=== PATIENT | female | born 1960 | race Caucasian/White ===

== ENCOUNTER 2020-06-25 11:23 | Outpatient (REF) | payer OTHER, SELFPAY ==
--- NOTE | 2020-06-25 11:29 | XR_ITS ---
EXAMINATION: XR HAND, BILATERAL CLINICAL INFORMATION: Pain in both hands. COMPARISON: Left hand 10/19/2017. TECHNIQUE: 3 views each hand. FINDINGS: RIGHT HAND: There is minimal loss of PIP and DIP joint space but no bony erosive changes seen. Periarticular spurring DIP joint 2nd digit is noted. There is punctate ossification of bone fragment along the dorsal aspect metacarpal right hand. The soft tissues are normal. LEFT HAND: There is mild loss of PIP and DIP joint space. MCP joint space is maintained. There is soft tissue calcification along the margin of MCP joint 4th digit. There is no visible acute fracture, dislocation or subluxation seen. XR/XR hand LT min 3V IMPRESSION: Mild degenerative changes both PIP and DIP joints. There is soft tissue calcification along the MCP joint 4th digit left hand and dorsal aspect proximal metacarpal right hand on lateral view.
--- NOTE | 2020-06-25 11:29 | XR_ITS ---
EXAMINATION: XR HAND, BILATERAL CLINICAL INFORMATION: Pain in both hands. COMPARISON: Left hand 10/19/2017. TECHNIQUE: 3 views each hand. FINDINGS: RIGHT HAND: There is minimal loss of PIP and DIP joint space but no bony erosive changes seen. Periarticular spurring DIP joint 2nd digit is noted. There is punctate ossification of bone fragment along the dorsal aspect metacarpal right hand. The soft tissues are normal. LEFT HAND: There is mild loss of PIP and DIP joint space. MCP joint space is maintained. There is soft tissue calcification along the margin of MCP joint 4th digit. There is no visible acute fracture, dislocation or subluxation seen. XR/XR hand RT min 3V IMPRESSION: Mild degenerative changes both PIP and DIP joints. There is soft tissue calcification along the MCP joint 4th digit left hand and dorsal aspect proximal metacarpal right hand on lateral view.
[2020-06-25 14:34] LABS: Alanine Aminotransferase 15 U/L (0-31); Alkaline Phosphatase 53 U/L (39-117); Anion Gap 13 (12-20); Aspartate Amino Transferase 16 U/L (5-31); Bilirubin Total 0.5 mg/dL (0.0-1.0); Blood Urea Nitrogen 16 mg/dL (9-16); Calcium 8.7 mg/dL (8.4-10.2); Carbon Dioxide 25 mmol/L (22-29); Chloride 103 mmol/L (96-108); Cholesterol 213 mg/dL; Estimated Glomerular Filt Rate > 60; Glucose Fasting 104 mg/dL (60-99); HDL Cholesterol 79 mg/dL; LDL Cholesterol Calculated 114 mg/dl; Sodium 137 mmol/L (135-145); Triglycerides 103 mg/dL
[2020-06-25 14:42] LABS: TSH reflex Free T4 2.92 mIU/mL (0.32-4.0); Vitamin D 25-OH Total 36.9 ng/mL (>30)
== END 2020-06-25 11:24 | disposition home or self-care (01) ==
LOC: HO.HMGCX 11:23
PROVIDERS: PCP Nurse Practitioner Family; Visit Provider Nurse Practitioner Family
DX: M79.642 Pain in left hand (principal); M79.641 Pain in right hand
CPT/HCPCS: 73130; 80053; 80061; 82306; 84443

== ENCOUNTER 2020-07-07 13:38 | Outpatient (REF) | payer OTHER, SELFPAY | END 2020-07-07 13:39 | disposition home or self-care (01) | LOC: HO.LAB 13:38 | PROVIDERS: Visit Provider Internal Medicine | DX: Z20.828 Contact with and (suspected) exposure to other viral communicable diseases (principal) | CPT/HCPCS: C9803; U0003 ==

== ENCOUNTER 2021-01-04 09:24 | Outpatient (REF) | payer OTHER, SELFPAY ==
[2021-01-04 11:52] LABS: Estimated Average Glucose 108 mg/dL; Hemoglobin A1c % 5.4 %
[2021-01-04 12:14] LABS: Alanine Aminotransferase 15 U/L (0-31); Albumin Level 4.3 g/dL (3.5-5.0); Alkaline Phosphatase 54 U/L (39-117); Anion Gap 13 (12-20); Aspartate Amino Transferase 20 U/L (5-31); Bilirubin Total 0.4 mg/dL (0.0-1.0); Blood Urea Nitrogen 17 mg/dL (9-16); Calcium 8.9 mg/dL (8.4-10.2); Carbon Dioxide 23 mmol/L (22-29); Chloride 107 mmol/L (96-108); Cholesterol 211 mg/dL; Estimated Glomerular Filt Rate > 60; Glucose Fasting 96 mg/dL (60-99); HDL Cholesterol 78 mg/dL; LDL Cholesterol Calculated 114 mg/dl; Sodium 139 mmol/L (135-145); Total Protein 7.2 g/dL (6.5-8.0); Triglycerides 99 mg/dL
== END 2021-01-04 09:25 | disposition home or self-care (01) ==
LOC: HO.HMGCLDS 09:24
PROVIDERS: PCP Nurse Practitioner Family; Visit Provider Nurse Practitioner Family
DX: R73.01 Impaired fasting glucose (principal)
CPT/HCPCS: 36415; 80053; 80061; 83036

== ENCOUNTER → 2021-02-28 08:29 | Outpatient (REF) | payer OTHER, SELFPAY ==
--- NOTE | ~2021-02-28 | NM_ITS ---
EXERCISE MYOCARDIAL PERFUSION STUDY INDICATION: History of coronary disease, assess for ischemia TECHNIQUE: The patient was brought in for an exercise perfusion study on 02/28/2021. Patient performed exercise as per Ra protocol and was injected 25 mCi of sestamibi once target heart rate was achieved. Images were obtained using the SPECT gamma camera interlaced with the gating device. Images were obtained in supine position. Resting perfusion study was performed on 03/02/2021. Patient was administered 25 mCi of sestamibi intravenously at rest. Images were then obtained in supine position. Total DLP 97mGy-cm. Images were processed with the software and compared side to side in short axis, horizontal long axis and vertical long axis views. FINDINGS: Raw images were reviewed. The stress perfusion study showed no significant perfusion abnormality. Both uncorrected as well as CT attenuation corrected images were reviewed. The gated study shows normal LV systolic function with calculated LVEF of 68%. LV cavity is normal in size. The gated study shows normal wall thickening and contraction of segments. Resting study shows no significant perfusion abnormality. Gating at rest reveals normal wall motion with ejection fraction at 60%. The findings are consistent with no reversible or fixed perfusion abnormality. AK/AK cardiolite stress test IMPRESSION: 1. Myocardial perfusion imaging study shows normal myocardial perfusion. 2. Gated LVEF is 68% during stress and 60% during rest. 3. Transient ischemic dilatation not present. EKG component of the test reported separately.
--- NOTE | 2021-02-28 08:32 | CA_ITS ---
Transthoracic Echocardiogram Patient (Last, First, Middle): Catalina Boggs, Gender: Female Date of : 1960 Age: 60 Procedure Date: 02/28/2021 Procedure Type: Transthoracic Echocardiogram Location: OP Height: 165.1 cm Weight: 70.31 kg BSA: 1.78 m2 Heart Rate: bpm BP: 118 / 80 mmHg Data Conversion Operator: SADAF Swan MD: Rodrigo Mayer [facility] Symptoms: R01.1 - Cardiac murmur, unspecified Study Quality: Good ECG Rhythm: Sinus Conclusions: - The left ventricular systolic function is normal. The calculated ejection fraction is 64% by biplane method. - No obvious valvular pathology seen on this study. Findings Left Ventricle Normal left ventricular cavity size. There is normal left ventricular wall thickness. The left ventricular systolic function is normal. The calculated ejection fraction is 64% by biplane method. There is no evidence of regional wall motion abnormalities. Diastolic function is normal for age. Right Ventricle Normal right ventricular cavity size and systolic function. Atria Both atria are normal in size. Aortic Valve There is a normal trileaflet aortic valve. There is no aortic valve stenosis. There is trace (trivial) aortic valve regurgitation. Mitral Valve The mitral valve appears normal. There is trace mitral valve regurgitation. There is no mitral valve stenosis. Pulmonic Valve The pulmonic valve was not well visualized. Tricuspid Valve Normal tricuspid valve structure. There is no tricuspid valve regurgitation. The pulmonary artery systolic pressure is normal. Great Vessels The aortic annulus, sinuses of valsalva, asc aorta, and aortic arch are normal in size. Venous The inferior vena cava is normal in size and collapses greater than 50% with inspiration. Pericardium/Pleural There is no evidence of pericardial effusion. Prior Study Comparison No significant change compared to prior study dated: 03/15/2012. Recommendations, Care & Conclusions No obvious valvular pathology seen on this study. Measurements 2D Linear Measurements IVSd: 0.94 0.6-0.9/0.6-1.0 cm LVIDd: 4.39 3.9-5.3/4.2-5.9 cm LVIDd Index: 2.47 2.4-3.2/2.2-3.1 cm/m2 LVIDs: 2.66 2.0-3.6 cm LVPWd: 0.84 0.7-1.1 cm Ao Root: 2.60 2.1-3.5 cm LA Diam: 3.80 2.7-3.8/3.0-4.0 cm LAIDs Index: 2.13 1.5-2.3 cm/m2 LV Mass: 156.29 67-162/88-224 g LV Mass Index: 87.80 43-95/49-115 g/m2 LVOT Diam: 2.00 3.0+(-)1.3 cm 2D Systolic Function EF 4C: 60.90 >55% EF 2C: 64.70 >55% EF BiP: 64.30 >55% Mitral Valve MV Pk E: 0.82 MV PK A: 0.69 MV Decel Time: 257.00 E/A: 1.20 E'Lateral: 9.36 E'Medial: 6.85 E/E' Med: 12.00 E/E' Lat: 8.80 PHT: 75.00 MVA PHT: 2.93 Decel Gratiot: 3.19 Aortic Valve AoV Pk Ruddy: 1.42 AoV Mn Ruddy: 0.99 AoV VTI: 0.30 AoV Pk Grad: 8.00 Aov Mn Grad: 4.00 CECY Cont.VTI: 2.30 LVOT LVOT Pk Ruddy: 1.03 LVOT Mn Ruddy: 0.70 LVOT VTI: 0.22 LVOT Pk Grad: 4.00 LVOT Mn Grad: 2.00 LVOT Diam: 2.00 LVOT Area: 3.14 Diastolic Function MV Pk E: 0.82 MV Pk A: 0.69 E/A: 1.20 E'Medial: 6.85 E/E' Med: 12.00 E' Laterial: 9.36 E/E' Lat: 8.80 Right Ventricle TAPSE (mm): 2.24 Tricuspid Valve TR Pk Ruddy: 1.53 TR Pk Grad: 9.00 RA Press: 3.00 RVSP: 12.00 Great Vessels Aorta Ao Root-2D: 2.60 2.0-3.7 cm Ao Asc: 2.90 2.1-3.4 cm Ao Arch: 2.70 Updated in Other Vendor System with Status of Final Yfn Israel MD electronically signed on 02/28/2021 11:45:14 AM with status of Final
--- NOTE | 2021-02-28 09:30 | CA_ITS ---
Acquisition Time: 2021-02-28 09:13:52 Total Exercise Time: 00:05:51 Test Indications: CAD Medications: SEE CHART Protocol: RONALD Max HR: 142 BPM 88% of Pred: 161 BPM Max BP: 184/090 mmHG Max Work Load: 7.0 METS Exercise stress nuclear using Ronald protocol, total of 5 min. 51 sec. METS 7.00 and MAPHR up to 88 %. Pt tolerated well, Mild SOB and no CP. EKG with isolated PVCs. EKG showed Mild ST depression in leads V4-V6 that normalized in recovery. Nuclear images to follow. Hypertensive response to exercise. Test reviewed with Dr. Israel. Referred By: Rodrigo Mayer Overread By: Khadijah Rabago NP
== END ==
LOC: HO.CARD 08:29
PROVIDERS: Visit Provider Nurse Practitioner Family
DX: R01.1 Cardiac murmur, unspecified (principal); Z82.49 Family history of ischemic heart disease and other diseases of the circulatory system
CPT/HCPCS: 78452; 93017; 93306; A9500

== ENCOUNTER 2022-09-07 10:14 | Outpatient (REF) | payer OTHER, SELFPAY ==
--- NOTE | ~2022-09-07 | XR_ITS ---
EXAMINATION: XR CHEST CLINICAL INFORMATION: Shortness of breath COMPARISON: Right shoulder radiographs 08/26/2013 TECHNIQUE: 2 views of the chest were obtained. FINDINGS: On the lateral radiograph, behind the sternum, a soft tissue density is seen which may represent a summation of densities. No definite significant abnormality is noted involving the heart, lungs, mediastinum, bony thorax or soft tissues. A sclerotic density is seen overlying the right humeral neck unchanged from 2014. XR/XR chest 2V IMPRESSION: No acute intrathoracic disease. Question of soft tissue density behind the sternum on the lateral radiograph. As there are no prior radiographs, CT scan of the chest could be performed for further evaluation to exclude a mass which is felt to be unlikely.
[2022-09-07 11:14] LABS: MANUAL DIFF FLAG NO
[2022-09-07 11:28] LABS: Basophils Absolute Auto 0.1 X10*3/uL (0.0-0.2); Basophils Percent Auto 0.9 % (0-2); Eosinophils Absolute Auto 0.3 X10*3/uL (0.0-0.4); Eosinophils Percent Auto 4.9 % (0-4); Hematocrit 38.8 % (37.0-47.0); Hemoglobin 12.8 g/dl (12.0-16.0); Imm Gran Abs Auto 0.03 X10*3/uL (0.00-0.03); Imm Gran Pct Auto 0.5 % (0.0-0.4); Lymphocytes Absolute Auto 1.5 X10*3/uL (1.2-4.9); Lymphocytes Percent Auto 23.7 % (20-40); Mean Corpuscular Hemoglobin 29.6 pg (27.0-33.0); Mean Corpuscular Volume 89.8 fL (80.0-98.0); Mean Platelet Volume 10.8 fL (9.4-12.3); Monocytes Percent Auto 15.5 % (2-11); Neutrophils Absolute Auto 3.5 x10*3/uL (2.0-8.3); Neutrophils Percent Auto 54.5 % (45-73); Platelet Count 237 X10*3/uL (160-400); Red Blood Count 4.32 X10*6/uL (4.20-5.50); Red Cell Distribution Width 12.1 % (11.0-16.0); White Blood Count 6.3 X10*3/uL (4.8-10.8)
[2022-09-07 11:33] LABS: Appearance Urine Clear; Color Urine Yellow; Glucose Urine UA Negative (Negative); Leukocyte Esterase Urine Trace (Negative); Nitrite Urine Negative (Negative); PH 5.5 (5.0-9.0); Specific Gravity - Urine 1.025 (1.005-1.025); UMIC TRIGGER UACC YES; Urine Blood Negative (Negative); Urine Ketones Negative (Negative); Urine Protein Negative (Neg-Trace)
[2022-09-07 11:40] LABS: Bacteria Urine 1+ (None Seen); Hyaline Casts Urine 0-2 /LPF (0-2); WBC Urine 0-5 /HPF (0-5)
[2022-09-07 11:52] LABS: Alanine Aminotransferase 25 U/L (0-31); Albumin Level 3.8 g/dL (3.5-5.0); Alkaline Phosphatase 75 U/L (39-117); Anion Gap 13 (12-20); Aspartate Amino Transferase 22 U/L (5-31); Bilirubin Total 0.3 mg/dL (0.0-1.0); Blood Urea Nitrogen 15 mg/dL (9-16); Calcium 8.6 mg/dL (8.4-10.2); Carbon Dioxide 25 mmol/L (22-29); Chloride 105 mmol/L (96-108); Cholesterol 207 mg/dL; Estimated Glomerular Filt Rate > 60; Glucose Fasting 100 mg/dL (60-99); HDL Cholesterol 69 mg/dL; LDL Cholesterol Calculated 116 mg/dl; Sodium 139 mmol/L (135-145); Total Protein 6.6 g/dL (6.5-8.0); Triglycerides 114 mg/dL
[2022-09-07 12:13] LABS: TSH reflex Free T4 3.71 uIU/mL (0.32-4.0); Vitamin D 25-OH Total 35.3 ng/mL (>30)
== END 2022-09-07 10:15 | disposition home or self-care (01) ==
LOC: HO.HMGCLDS 10:14
PROVIDERS: PCP Nurse Practitioner Family; Visit Provider Nurse Practitioner Family
DX: Z00.00 Encounter for general adult medical examination without abnormal findings (principal); R06.02 Shortness of breath; Z78.0 Asymptomatic menopausal state
CPT/HCPCS: 36415; 71046; 80053; 80061; 81001; 82306; 84443; 85025

== ENCOUNTER 2022-10-09 15:07 | Outpatient (REF) | payer OTHER, SELFPAY ==
--- NOTE | ~2022-10-09 | CT_ITS ---
EXAMINATION: CT CHEST WITH CONTRAST CLINICAL INFORMATION: Soft tissue density behind the sternum on a chest x-ray 09/07/2022. COMPARISON: Chest 09/07/2022. TECHNIQUE: Multidetector volumetric CT imaging of the chest was obtained after the administration of 50 mL of Omnipaque 350 intravenous contrast without immediate adverse reactions. Axial MIP volume rendering provided. Sagittal and coronal reformatted images were obtained. This CT examination was performed using dose optimization techniques as appropriate, variously including the following: *Automated exposure control *Adjustment of mA and/or kV according to patient size (this includes techniques or standardized protocols for targeted exams where dose is matched to indication/reason for exam; i.e. 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 LUNGS: The lungs are well-expanded and clear of acute pneumonic process. There is no consolidation, mass, infiltrates or groundglass attenuation. No pulmonary nodules seen either. MEDIASTINUM: The thyroid lobes are symmetrical and normal. The central trachea and bronchi are widely patent. No abnormal size mediastinal or hilar lymph nodes seen. There is no pericardial effusion. Trace coronary artery calcifications are seen. PLEURA: There is no pleural effusion. No pleural mass or thickening. AXILLA: There are small shotty lymph nodes in the axilla. The largest measuring 1 cm in the right axilla. UPPER ABDOMEN: Visualized spleen, pancreas and bilateral adrenal glands are unremarkable. There is a 2 cm curvilinear hypodensity in the left hepatic lobe, likely cyst. OSSEOUS STRUCTURES: No aggressive lytic or sclerotic process seen. CT/CT chest w IV con IMPRESSION: Unremarkable CT chest exam. No retrosternal mass or consolidation seen. Abnormality seen on the previous chest x-ray is likely an artifact. Fleischner guidelines were followed.
[2022-10-09] MEDS: iohexoL 350 MG/ML 100 ML INFUS..BTL 65 ML IV (15:52)
[2022-10-10 10:11] LABS: Creatinine POC 0.6 mg/dL (0.5-1.4); GFR POC > 60
== END 2022-10-09 15:08 | disposition home or self-care (01) ==
LOC: HO.CT 15:07
PROVIDERS: Visit Provider Nurse Practitioner Family
DX: M89.8X8 Other specified disorders of bone, other site (principal)
CPT/HCPCS: 71260; 82565; Q9967

== ENCOUNTER 2022-10-12 10:07 | Outpatient (REF) | payer OTHER, SELFPAY ==
--- NOTE | ~2022-10-12 | XR_ITS ---
EXAMINATION: XR KNEE, RIGHT CLINICAL INFORMATION: Right knee pain. COMPARISON: None available. TECHNIQUE: Four views of the right knee. FINDINGS: Bones and soft tissues are normal. No fracture or joint effusion. Alignment is anatomic. Joint spaces are well maintained. No abnormal soft tissue calcification. XR/XR knee RT 4V IMPRESSION: Unremarkable right knee.
== END 2022-10-12 10:08 | disposition home or self-care (01) ==
LOC: HO.HMGCX 10:07
PROVIDERS: PCP Nurse Practitioner Family; Visit Provider Internal Medicine
DX: S89.91XA Unspecified injury of right lower leg, initial encounter (principal)
CPT/HCPCS: 73564

== ENCOUNTER 2022-12-15 19:30 | Outpatient (REF) | payer OTHER, SELFPAY ==
--- NOTE | ~2022-12-15 | MR_ITS ---
EXAMINATION: MR KNEE WITHOUT CONTRAST, RIGHT CLINICAL INFORMATION: Right knee pain following injury on 10/02/2022. Pain and swelling. COMPARISON: Most recent right knee radiographs dated 10/12/2022. TECHNIQUE: MRI of the knee without contrast was performed using routine sequences on a high-field scanner. FINDINGS: MENISCI: Medial Meniscus: Significant irregularity and attenuation of the anterior root, consistent with complex, near-complete tearing and measuring up to 1.4 cm in ML dimension. Adjacent soft tissue edema. No additional meniscal tear. Lateral Meniscus: Intact LIGAMENTS: Cruciate: Intact Collateral: Intact EXTENSOR MECHANISM: Intact quadriceps and patellar tendons. Small superior patellar enthesophytes. Normal patellofemoral alignment. ARTICULAR CARTILAGE/BONE: Patellofemoral Compartment: Mild trochlear articular cartilage signal heterogeneity. Tiny marginal osteophytes. Medial Compartment: Mild weight-bearing articular cartilage signal heterogeneity and surface irregularity with tiny marginal osteophytes. Lateral Compartment: Intact articular cartilage. JOINT FLUID AND BURSAE: Small joint effusion. MR/MR knee RT wo con IMPRESSION: 1. Complex, near-complete tearing of the medial meniscus anterior root measuring 1.4 cm in ML dimension. Adjacent soft tissue edema. 2. Mild patellofemoral and medial compartment osteoarthritis. Small joint effusion.
== END 2022-12-15 19:31 | disposition home or self-care (01) ==
LOC: HO.MRI 19:30
PROVIDERS: PCP Nurse Practitioner Family; Visit Provider Nurse Practitioner Family
DX: M25.561 Pain in right knee (principal); M25.461 Effusion, right knee
CPT/HCPCS: 73721

== ENCOUNTER 2023-01-18 15:00 | Outpatient (RCR) | payer OTHER, SELFPAY ==
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
--- NOTE | 2023-01-19 14:54 | MHC.PT.DC ---
[facility] [place] Office [place] Office [place] Office [address] Denice Pritchard [address] [phone] F: [phone] F: [phone] F: [phone] F: [phone] Physical Therapy Discharge Report Diagnosis: This is a 62 yo female presenting to skilled PT with a script for pain in R knee/effusion of R knee. Date of Surgery: Date of Evaluation: 11/20/22 Date of Discharge: 01/19/23 Treatments to Date: 16 Cancellations to Date: 0 No Shows to Date: 0 Discharge Status: Achieved Goals Improved Function Independent with HEP Recommend MD Follow-up Discharge Summary: Pt has progressed with pain management, ROM (WNL 0-133), strength and gait (no longer using cane and demos good pattern). She also reports improvements in sleeping and stairs. We discussed wrapping up and DCing to HEP as she can perform all at home and has met her PT goals for now; patient in agreement. Still noted quad atrophy so educated on continuing strengthening program. DC to HEP. Patient to follow up with orthopedic 01/24/23. Electronically signed by: Nurys Gallego, PT Please sign and return to therapist. Thank you for your referral.
== END 2023-01-19 14:54 | disposition home or self-care (01) ==
LOC: HO.PTCHIC 15:00
PROVIDERS: PCP Nurse Practitioner Family; Visit Provider Nurse Practitioner Family
DX: M25.561 Pain in right knee (principal); M25.461 Effusion, right knee
CPT/HCPCS: 97014; 97110; 97140; 97162; 97164

== ENCOUNTER 2023-06-05 09:38 | Outpatient (AMB) | payer OTHER, SELFPAY ==
--- NOTE | 2023-06-05 10:36 | AM.OFFWIN_ITS ---
Intake Vital Signs 06/05/23 10:40 Height 5 ft 5 in Weight 168 lb BMI 28.0 BP 130/76 Blood Pressure Location Lt brachial Position Sitting Pulse 76 Pulse Source Pulse Oximeter Temp 97.9 F Temp Source Oral Pulse Oximetry (%) 97 Oxygen Delivery Method Room Air Intake Visit Reasons: ESt/pinched nerve in lt side of neck/[id number] Intake Note: Pinched nerve in left side of neck for 2 weeks. Patient Tobacco Use Status: Never used Tobacco Allergies azithromycin Allergy (Unknown, Verified 06/05/23 11:15) Unknown Bees Allergy (Unknown, Uncoded 06/05/23 11:15) Feels faint/unstable Erythromycin Allergy (Unknown, Uncoded 06/05/23 11:15) Eye swelling Medication List - Last Reconciled 06/05/23 by Braydon Boucher MD albuterol sulfate 90 mcg/actuation 2 puffs inhalation Q6H PRN 30 days bupropion HCl 150 mg PO ONCE diclofenac sodium 1% (Arthritis Pain (diclofenac)) 4 grams topical QID 30 days estradiol 1 patch transdermal QWEEK fexofenadine-pseudoephedrine 180-240 mg ER (Prema-D 24 Hour) 1 tab PO QAM fluticasone propionate 50 mcg/actuation 2 sprays intranasal DAILY glucosamine HCl PO ibuprofen (Motrin IB) 400 mg PO Q8H Lactobacillus acidophilus (Probiotic Acidophilus) 100 mmu cells PO DAILY lovastatin 20 mg PO DAILY 90 days meclizine 12.5 mg PO TID PRN methylcellulose (laxative) (Citrucel) 500 mg PO BID progesterone micronized mg PO simethicone (Gas Relief (simethicone)) 250 mg (2 x 125 mg) PO BID PRN 30 days trazodone 150 mg (3 x 50 mg) PO BEDTIME 90 days HPI ESt/pinched nerve in lt side of neck/[id number] HPI Details 62-year-old female presents to the [facility] for a sick visit. Patient is reporting pain in the left hand side of the neck. The pain is pr esent for the past 2 weeks. Radiating into the left arm with tingling sensation. Occasionally she feels the left arm to be weak. Recovering from a right knee surgery that happened a few months ago. [facility] Medical History Anxiety Dyslipidemia Hand pain Headache syndrome Hip pain Surgical History History of removal of cyst Family History Father Arthritis Diabetes mellitus Cataract Mother HTN (hypertension) Glaucoma History of angina Maternal Grandfather Myocardial infarction Maternal Grandmother Stroke Paternal Grandmother No problems noted. Paternal Grandfather Myocardial infarction Brother No problems noted. Sister No problems noted. Son No problems noted. Daughter No problems noted. Housing: House Alcohol intake: current Alcohol intake frequency: a few times a month Patient Tobacco Use Status: Never used Tobacco e-Cigarette/Vaping Use: Never Used Second Hand Smoke Exposure: No service: No Current occupational status: employed Cognitive needs: No Hearing needs: No Vision needs: No Physical Exam Vital Signs: Last Vital Signs Temp 97.9 F 06/05/23 10:40 Pulse 76 06/05/23 10:40 BP 130/76 06/05/23 10:40 Pulse Ox 97 06/05/23 10:40 Oxygen Delivery Method Room Air 06/05/23 10:40 BMI result Body Mass Index 28.0 Const General: cooperative and healthy appearing Nutritional Appearance: well nourished Orientation/consciousness: patient oriented x3 Limitations: no limitations HEENT Head: Yes normal to inspection Eyes General: appearance normal, both eyes and all related structures Neck Other: Neck: Minimal trapezius muscle discomfort on the left side. Neck: Yes normal visual inspection and Yes full ROM Chest Chest palpation & inspection: normal palpation of entire chest wall Resp Effort & Inspection: normal respiratory effort Neuro General: patient oriented x3 Assessment & Plan Assessment & Plan (1) Acute neck sprain: Code(s): S13.9XXA - Sprain of joints and ligaments of unspecified parts of neck, initial encounter Plan: Most likely a muscular strain. Muscle relaxant and anti-inflammatory called in. If symptoms do not improve to follow-up here. Coding Level of Care Code Est Pt Level 3 (64658) Diagnoses Acute neck sprain S13.9XXA
[2023-06-05 10:40] VITALS: BP 130/76; PULSE 76; TEMP 36.6; O2SAT 97; BMI 28.0
== END 2023-06-05 11:26 | disposition home or self-care (01) ==
PROVIDERS: PCP Nurse Practitioner Family; Visit Provider Internal Medicine
DX: S13.9XXA Sprain of joints and ligaments of unspecified parts of neck, initial encounter (principal)
CPT/HCPCS: 99213

== ENCOUNTER 2023-08-15 13:48 | Outpatient (AMB) | payer OTHER, SELFPAY ==
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
[2023-08-15 13:58] VITALS: BP 142/74; PULSE 87; O2SAT 100; BMI 27.6
== END 2023-08-15 15:24 | disposition home or self-care (01) ==
PROVIDERS: PCP Nurse Practitioner Family; Visit Provider Physician Assistant
DX: M54.50 Low back pain, unspecified (principal); M25.561 Pain in right knee
CPT/HCPCS: 99213

== ENCOUNTER 2023-08-22 14:58 | Outpatient (AMB) | payer OTHER, SELFPAY ==
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
[2023-08-22 15:05] VITALS: BP 148/76; PULSE 86; O2SAT 97; BMI 27.9
== END 2023-08-22 16:15 | disposition home or self-care (01) ==
PROVIDERS: PCP Nurse Practitioner Family; Visit Provider Nurse Practitioner Family
DX: S89.90XA Unspecified injury of unspecified lower leg, initial encounter (principal); Y99.0 Civilian activity done for income or pay; M54.50 Low back pain, unspecified; M79.606 Pain in leg, unspecified
CPT/HCPCS: 99213

== ENCOUNTER 2023-09-06 14:53 | Outpatient (AMB) | payer OTHER, SELFPAY ==
--- NOTE | 2023-09-06 07:23 | MHC.PC.OV ---
Intake Visit Reasons: Follow up back pain Iphone Allergies azithromycin Allergy (Unknown, Verified 08/22/23 15:09) Unknown Bees Allergy (Unknown, Uncoded 08/22/23 15:09) Feels faint/unstable Erythromycin Allergy (Unknown, Uncoded 08/22/23 15:09) Eye swelling Tobacco use date assessed: 08/22/23 HPI Follow up back pain Iphone HPI Details Lower back pain: Pt is currently going to PT twice a week. She recently finished dexamethasone taper which helped. radicular symptms seem to have lessoned. Pt is following up with the spine center in the near future. Pt is going back to work on Sunday, and will keep me posted, via portal, with her tolerance. Denies any signs of cauda equina. Pt is going massage therapy as well. [facility] Medical History Dyslipidemia Headache syndrome Anxiety Hip pain Hand pain Surgical History History of removal of cyst Family History Father Arthritis Diabetes mellitus Cataract Mother HTN (hypertension) Glaucoma History of angina Maternal Grandfather Myocardial infarction Maternal Grandmother Stroke Paternal Grandmother No problems noted. Paternal Grandfather Myocardial infarction Brother No problems noted. Sister No problems noted. Son No problems noted. Daughter No problems noted. Social History Housing: House Alcohol intake: current Alcohol intake frequency: a few times a month Patient Tobacco Use Status: Never used Tobacco e-Cigarette/Vaping Use: Never Used Second Hand Smoke Exposure: No service: No Current occupational status: employed Cognitive needs: No Hearing needs: No Vision needs: No Questionnaire Thrive Questionnaire Date Thrive assessed: 08/22/23 ELOY-7 AMB Questionnaire ELOY-7 Date ELOY - 7 assessed: 08/22/23 Source: Developed by Drs. Karthik Gooden, Nikkie Lemus, Juan J Perdomo and colleagues, with an educational jackson from [employer]. Review of Systems Const Reports as per HPI Physical exam (Primary Care) Tobacco/Smoking Status: Tobacco use Status Tobacco use date assessed 08/22/23 09/06/23 07:24 Patient Tobacco Use Status Never used Tobacco 09/06/23 07:24 e-Cigarette/Vaping Use Never Used 09/06/23 07:24 Thrive Assessment: Date of Thrive Assessment Date Thrive assessed 08/22/23 09/06/23 07:24 Const General: cooperative Orientation/consciousness: patient oriented x3 Neuro General: patient oriented x3 Psych Appearance: grossly normal Mental Status: mental status grossly normal Speech and movement: Clear speech present Affect: normal affect Attitude: cooperative Thought process: Normal thought process present Thought content: Normal thought content present Insight: Good insight present (Psych) Judgement: Good judgement present (Psych) Telehealth Telehealth Location of provider rendering services: practice address Location of patient: address on file Patient Identification confirmed using: Name, : Yes Telehealth method: video Patient verbally consented to treatment: Yes Patient verbally consented to billing insurance company: Yes Patient informed of any privacy concerns related to visit: Yes Minutes spent on Phone/Video with Pt.: 10 Assessment and Plan Assessment & Plan (1) Low back pain radiating to lower extremity: Code(s): M54.50 - Low back pain, unspecified; M79.606 - Pain in leg, unspecified Plan The patient agreed to the use of a internist medical doctor md for this encounter. Scribed for SUSHMA Guillen by Mali Bellamy internist medical doctor md, on 09/06/2023 at 07:25 EST. Coding Level of Care Code Tele Est Pt Level 3 (64437) Diagnoses Low back pain radiating to lower extremity M54.50; M79.606
== END 2023-09-06 15:27 | disposition home or self-care (01) ==
LOC: HO.HMGC 14:54
PROVIDERS: PCP Nurse Practitioner Family; Visit Provider Nurse Practitioner Family
DX: M54.50 Low back pain, unspecified (principal); M79.606 Pain in leg, unspecified
CPT/HCPCS: 99213

== ENCOUNTER 2024-08-19 06:56 | Outpatient (AMB) | payer OTHER, SELFPAY ==
--- NOTE | 2024-08-19 07:48 | A.OFFVIS_ITS ---
Intake Visit Reasons: Discuss anxiety-[place] [phone] Allergies azithromycin Allergy (Unknown, Verified 08/22/23 15:09) Unknown Bees Allergy (Unknown, Uncoded 08/22/23 15:09) Feels faint/unstable Erythromycin Allergy (Unknown, Uncoded 08/22/23 15:09) Eye swelling HPI HPI Discuss anxiety-[place]ardohone [phone]: Details: History of Present Illness The patient is a 63-year-old female presenting with a follow-up for Major Depressive Disorder and Anxiety Disorder. She reports an increase in anxiety and some depression, which has been attributed to significant stressors in her life. Recently, the patient has moved out of her home due to a difficult relationship with her spouse and is now residing with her elderly mother, whom she assists with care. This change has coincided with employment in a new job that is stressful. left her previous position which contributed to symptoms of PTSD. The patient and her therapist mentioned a increase her Wellbutrin dosage from 150 mg to 300 mg XL daily to better manage her symptoms of anxiety and depression. The patient acknowledges improvement in her living situation and anticipates a positive trajectory in her mental health, though she continues to experience some stress related to her new job. Review of Systems - Psychiatric: Reports increased anxiety and depression. Plan - Increase the dose of Wellbutrin to 300 mg XL once daily to manage symptoms of anxiety and depression. - Follow up with the patient in approximately two months to evaluate the effectiveness of the increased Wellbutrin dose. - Schedule a physical examination for the same follow-up visit. Patient was informed and verbally consented to the use of an ambient scribe for clinic note documentation during this visit. Discussion Notes During our discussion, I supported the decision to increase the Wellbutrin dosage as recommended by the patient's therapist. This change aims to address the patient's exacerbated anxiety and depressive symptoms since relocation and taking on a new job. I find this plan appropriate given her current stressors and past experiences. A follow-up appointment is scheduled in two months, during which I will assess her progress with the medication adjustment and conduct a physical examination. The patient is currently not in acute distress, appears alert, and is oriented, indicating that she's adjusting well to the alterations in her treatment regimen. Patient Instructions - Begin taking 300 mg Wellbutrin XL once daily. - Monitor for any changes in mood, anxiety, or stress levels. - Maintain regular communication with your therapist. - Attend the follow-up appointment in two months for reassessment. - Notify medical personnel if new symptoms arise or if current symptoms worsen. - Continue assisting with caregiving responsibilities as tolerated, but seek help if feeling overwhelmed. [facility] Medical History (Updated 08/19/24 @ 07:49 by SUSHMA Chandra) Dyslipidemia Headache syndrome Anxiety Hip pain Hand pain Surgical History History of removal of cyst Family History Father Arthritis Diabetes mellitus Cataract Mother HTN (hypertension) Glaucoma History of angina Maternal Grandfather Myocardial infarction Maternal Grandmother Stroke Paternal Grandmother No problems noted. Paternal Grandfather Myocardial infarction Brother No problems noted. Sister No problems noted. Son No problems noted. Daughter No problems noted. Social History Housing: House Alcohol intake: current Alcohol intake frequency: a few times a month Patient Tobacco Use Status: Never used Tobacco e-Cigarette/Vaping Use: Never Used Second Hand Smoke Exposure: No service: No Current occupational status: employed Cognitive needs: No Hearing needs: No Vision needs: No Telehealth Telehealth Telehealth Platform: [facility] Location of provider rendering services: practice address Location of patient: address on file Patient Identification confirmed using: Name, : Yes Telehealth method: voice only Patient verbally consented to treatment: Yes Patient verbally consented to billing insurance company: Yes Patient informed of any privacy concerns related to visit: Yes Minutes spent on Phone/Video with Pt.: 15 Assessment & Plan Assessment & Plan (1) Anxiety: Code(s): F41.9 - Anxiety disorder, unspecified Category: Medical (2) Depression: Code(s): F32.A - Depression, unspecified Category: Medical Plan . Medications: Changed From bupropion HCl XL 150 mg PO ONCE 90 tabs 5RF To bupropion HCl XL 300 mg PO DAILY 90 tabs 2RF Coding Level of Care Code Tele Est Pt Level 3 (17127) Diagnoses Anxiety F41.9 Depression F32.A
== END 2024-08-19 09:38 | disposition home or self-care (01) ==
PROVIDERS: PCP Nurse Practitioner Family; Visit Provider Nurse Practitioner Family
DX: F41.9 Anxiety disorder, unspecified (principal); F32.A Depression, unspecified

== ENCOUNTER → 2024-08-19 06:56 | Outpatient (BNVA) | payer OTHER, SELFPAY | PROVIDERS: PCP Nurse Practitioner Family; Visit Provider Nurse Practitioner Family ==

== ENCOUNTER 2024-10-03 11:44 | Outpatient (AMB) | payer OTHER, SELFPAY ==
--- NOTE | 2024-10-03 11:46 | MHC.OFFWIV ---
Intake Vital Signs 10/03/24 11:48 Weight 165 lb BP 124/82 Blood Pressure Location Rt brachial Position Sitting Pulse 81 Pulse Source Pulse Oximeter Pulse Oximetry (%) 95 Oxygen Delivery Method Room Air Intake Visit Reasons: EP [place] eye (RT) Intake Note: Patient here for right eye irritation and discharge that has been present for about 3 days. Patient Tobacco Use Status: Never used Tobacco Allergies azithromycin Allergy (Unknown, Verified 10/03/24 11:49) Unknown Bees Allergy (Unknown, Uncoded 10/03/24 11:49) Feels faint/unstable Erythromycin Allergy (Unknown, Uncoded 10/03/24 11:49) Eye swelling Do you need a note to return to daycare/school/sports/work: No HPI HPI Comments History of Present Illness Details This is a 63-year-old female who presented to the walk-in clinic complaining of right eye irritation and discharge. She states she has been waking up with right eye redness/irritation, purulent discharge, and crusting for the past 3 days. She states she uses warm compresses and her symptoms seem to resolve as the day progresses; however, she then develops redness and purulent discharge again the following morning. She states the symptoms are now starting to develop in her left eye as well. She denies any eye pain or visual changes. 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 She does report a history of seasonal allergies; however, she states that she typically has a lot of eye watering with her allergies and she does not typically have thick discharge or crusting. [facility] Medical History (Updated 08/19/24 @ 07:49 by SUSHMA Chandra) Dyslipidemia Headache syndrome Anxiety Hip pain Hand pain Surgical History History of removal of cyst Family History Father Arthritis Diabetes mellitus Cataract Mother HTN (hypertension) Glaucoma History of angina Maternal Grandfather Myocardial infarction Maternal Grandmother Stroke Paternal Grandmother No problems noted. Paternal Grandfather Myocardial infarction Brother No problems noted. Sister No problems noted. Son No problems noted. Daughter No problems noted. Social History Housing: House Alcohol intake: current Alcohol intake frequency: a few times a month Patient Tobacco Use Status: Never used Tobacco e-Cigarette/Vaping Use: Never Used Second Hand Smoke Exposure: No service: No Current occupational status: employed Cognitive needs: No Hearing needs: No Vision needs: No Review of Systems Const All systems reviewed & are unremarkable except as noted in HPI and below Reports no additional complaints Eyes Reports no additional complaints ENT Reports no additional complaints Card Reports no additional complaints Resp Reports no additional complaints GI Reports no additional complaints Reports no additional complaints Musc Reports no additional complaints Skin/Breast Reports system reviewed and no additional complaints, except as documented Neuro Reports no additional complaints Psych Reports no additional complaints Endo Reports no additional complaints Jagdeep/Lymph Reports no additional complaints Aller/Immun Reports no additional complaints Physical Exam Vital Signs: Last Vital Signs Pulse 81 10/03/24 11:48 BP 124/82 10/03/24 11:48 Pulse Ox 95 10/03/24 11:48 Oxygen Delivery Method Room Air 10/03/24 11:48 Const Other: Vital signs reviewed. Constitutional: Non-toxic appearing. No acute distress. Well-developed and well-nourished. HEENT: Normocephalic and atraumatic. Tympanic membranes without erythema, edema, or bulging bilaterally. External auditory canals without erythema or edema bilaterally. Moist mucous membranes. No pharyngeal erythema or exudates. No significant conjunctival injection or purulent discharge/drainage at this time. Skin: Warm and dry. No rashes or lesions noted. Neck: Full and painless range of motion. Cardio: Regular rate. No lower extremity edema. Pulmonary: No respiratory distress. No accessory muscle usage. Musculoskeletal: Normal range of motion in joints throughout the body. No deformity or other signs of injury. Neuro: Alert and oriented x4. Cranial nerves 2-12 grossly intact. No focal deficits appreciated. Psych: Normal mood and affect. Assessment & Plan Assessment & Plan (1) Bacterial conjunctivitis: Code(s): H10.9 - Unspecified conjunctivitis Plan This is a 63-year-old female who presented to the walk-in clinic complaining of right eye irritation and discharge/crusting, which occurs in the morning and has now developed in her left eye. On physical examination, there is no significant conjunctival injection or discharge/drainage at this time but patient states it really only happens when she wakes up in the morning. History is most consistent with possible bacterial conjunctivitis. Patient unable to use erythromycin ointment due to allergy so she was given a prescription for ciprofloxacin eye drops as below. Patient should continue with warm/cool compresses and practice good hand hygiene. Patient advised to follow up here for persistent/worsening symptoms. Patient verbalized understanding and is agreeable with the plan. Medications: New ciprofloxacin HCl 0.3% put 1-2 drps in affected eye(s) every 2hr up to 8 times/day x2days; then 4 times/day x5days ophthalmic (eye) 10 mL 0RF Coding Level of Care Code Est Pt Level 3 (76780) Diagnoses Bacterial conjunctivitis H10.9
[2024-10-03 11:48] VITALS: BP 124/82; PULSE 81; O2SAT 95
== END 2024-10-03 12:53 | disposition home or self-care (01) ==
PROVIDERS: PCP Nurse Practitioner Family; Visit Provider Physician Assistant Medical
DX: H10.9 Unspecified conjunctivitis (principal)

== ENCOUNTER 2024-10-23 16:06 | Outpatient (AMB) | payer OTHER, SELFPAY ==
--- NOTE | 2024-10-23 16:13 | A.OFFPC_ITS ---
Vital Signs 10/23/24 16:14 Height 5 ft 5 in Weight 168 lb BMI 28.0 BP 120/80 Blood Pressure Location Lt brachial Position Sitting Pulse 81 Pulse Source Pulse Oximeter Pulse Oximetry (%) 93 Oxygen Delivery Method Room Air Intake Visit Reasons: ANNUAL PE [employer] Agent Required: No Accompanied by: Self / Same As Patient Allergies azithromycin Allergy (Unknown, Verified 10/23/24 16:44) Unknown Bees Allergy (Unknown, Uncoded 10/23/24 16:44) Feels faint/unstable Erythromycin Allergy (Unknown, Uncoded 10/23/24 16:44) Eye swelling Medication List - Last Reconciled 10/23/24 by Rodrigo Mayer, [facility] albuterol sulfate 90 mcg/actuation 2 puffs inhalation Q6H PRN 30 days bupropion HCl XL 300 mg PO DAILY diclofenac sodium 1% (Arthritis Pain (diclofenac)) 4 grams topical QID 30 days estradiol 1 patch transdermal QWEEK fexofenadine-pseudoephedrine 180-240 mg ER (Prema-D 24 Hour) 1 tab PO QAM fluticasone propionate 50 mcg/actuation 2 sprays intranasal DAILY 90 days glucosamine HCl PO ibuprofen (Motrin IB) 400 mg PO Q8H Lactobacillus acidophilus (Probiotic Acidophilus) 100 mmu cells PO DAILY lovastatin 20 mg PO DAILY 90 days methylcellulose (laxative) (Citrucel) 500 mg PO BID progesterone micronized mg PO simethicone (Gas Relief (simethicone)) 250 mg (2 x 125 mg) PO BID PRN 30 days trazodone 150 mg (3 x 50 mg) PO BEDTIME 90 days Tobacco use date assessed: 10/23/24 Dental Screening Dental Screen Date: 10/23/24 Did you have a dental visit in the last 12 months?: Yes Did you have a dental problem in the last 6 months where you did not have access to dental care?: No Was dental information given to patient?: Patient has dentist HPI ANNUAL PE HPI Details History of Present Illness The patient is a 64-year-old female presenting with a request for an annual physical examination. She reports a history of asthma, with symptoms like wheezing manifesting intermittently during allergy seasons especially. The patient currently manages her condition without regular use of albuterol, which is , or other maintenance inhalers that she previously found ineffective. The patient has experienced COVID-19 infections four times, with the last infection in June. Since her last infection, she has a lingering chronic cough and episodes of shortness of breath that are self-limiting and brief. She denies any symptoms such as fevers, chills, chest pain. Health Maintenance - Cologuard screening up to date - Mammogram screening reported as up to date -has a urogynaecologist for paps Social History Review of Systems - Constitutional: Denies fevers or chill s - Respiratory: Reports history of asthma with intermittent wheezing; denies current shortness of breath requiring medication - Cardiovascular: Denies chest pain - Gastrointestinal: denies blood in stoo l, does have a Hx of IBS (sees GI) - Psychiatric: Denies suicidal or homici juanito ideation Physical Exam General: Cooperative, healthy appearing, comfortable, no acute distress and well developed Orientation: Patient oriented x3 Limitations: No limitations Head: Normal to inspection Ears: Hearing grossly normal bilaterally Nose: Normal external nose present Face and sinus: Normal facial exam Eyes: Appearance normal, both eyes and all related structures Neck: Normal visual inspection and Yes full ROM Respiratory: Lungs clear. Normal respiratory effort and able to speak in complete sentences. Clear to auscultation bilaterally Cardiovascular: Regular rate and rhythm. Very faint systolic murmur. Normal S1 and S2 GI: Normal to inspection. Soft to palpation and nontender Skin: No rashes or lesions noted Neuro: Patient oriented x3 Extremities: Normal to inspection Results Plan I will conduct a CT scan and pulmonary function tests to explore the patient's chronic respiratory symptoms and allergy profile blood tests. I will provide a new prescription for albuterol given her current inhaler's expiration. For allergy management, I recommend a trial of cetirizine in lieu of Prema D. I acknowledge the patient's history with previous inhalers and will not change her maintenance therapy at this time but remain open to reassessing if symptoms worsen. Her health screenings are maintained up to date. Discussion Notes I discussed with the patient the historical context of her asthma and the likelihood of seasonal allergies contributing to her respiratory symptoms. We reviewed the need for a new albuterol inhaler and discussed the shift from Prema D to cetirizine to address allergy symptoms. I explained the importance of the planned CT scan, pulmonary function tests, and allergy profile blood work in assessing her respiratory condition and potential allergies. We reviewed her up-to-date health screenings, and she was advised to maintain regular check-ups. Patient Instructions - Continue current asthma management wit h new albuterol inhaler as needed - Start cetirizine, 20 mg in the morning and 20 mg at night - Complete scheduled CT scan and pulmona ry function tests - Continue routine health screenings inc luding mammogram and Cologuard - Return for follow-up after diagnostic test results are available [facility] Medical History Dyslipidemia Headache syndrome Anxiety Hip pain Hand pain Surgical History S/P lateral meniscus repair of right knee History of removal of cyst Family History Father Arthritis Diabetes mellitus Cataract Mother HTN (hypertension) Glaucoma History of angina Maternal Grandfather Myocardial infarction Maternal Grandmother Stroke Paternal Grandmother No problems noted. Paternal Grandfather Myocardial infarction Brother No problems noted. Sister No problems noted. Son No problems noted. Daughter No problems noted. Social History Housing: House Alcohol intake: current Alcohol intake frequency: a few times a month Patient Tobacco Use Status: Never used Tobacco e-Cigarette/Vaping Use: Never Used Second Hand Smoke Exposure: No service: No Current occupational status: employed Current occupation: teacher Cognitive needs: No Hearing needs: No Vision needs: No Questionnaire PHQ-9 Over the last 2 weeks, how often have you been bothered by any of the following problems? 1. Little interest or pleasure in doing things: not at all 2. Feeling down, depressed, or hopeless: not at all 3. Trouble falling or staying asleep, or sleeping too much: not at all 4. Feeling tired or having little energy: not at all 5. Poor appetite or overeating: not at all 6. Feeling bad about yourself - or that you are a failure or have let yourself or your family down: not at all 7. Trouble concentrating on things, such as reading the newspaper or watching television: not at all 8. Moving or speaking so slowly that other people could have noticed. Or the opposite - being so fidgety or restless that you have been moving around a lot more than usual: not at all 9. Thoughts that you would be better off or of hurting yourself in some way: not at all Total score: 0 Depression Screening Interpretation: Negative Depression Screening Done: Yes 32588 - PHQ-9 Billing: Yes Source: Developed by Drs. Karthik Gooden, Nikkie Lemus, Juan J Perdomo and colleagues, with an educational jackson from [employer] Thrive Questionnaire Date Thrive assessed: 08/22/23 I am a: Patient What is your living situation today?: I choose not to answer this question Within the past 12 months, did the food you bought not last and you didn't have the money to get more?: I choose not to answer this question Within the past 12 months, did you worry whether your food would run out before you got money to buy more?: I choose not to answer this question Do you have trouble paying for medicines?: I choose not to answer this question Do you have trouble getting transportation to medical appointments?: I choose not to answer this question Do you have trouble paying your heating and electricity bill?: I choose not to answer this question Do you have trouble taking care of your child, family member or friend?: I choose not to answer this question Do you have trouble with day-to-day activities such as bathing, preparing meals, shopping, managing finances, etc.?: I choose not to answer this question Are you currently unemployed and looking for a job?: I choose not to answer this question Are you interested in more education?: I choose not to answer this question Please select the resources that you would like help with: None Currently or been in a relationship where the following occur: I choose not to answer THRIVE Score: 0 AUDIT C Alcohol Use Questionnaire (AUDIT-C) 1. How often do you have a drink containing alcohol?: Monthly or less 2. How many drinks containing alcohol do you have on a typical day when you are drinking?: 1 or 2 3. How often do you have six or more drinks on one occasion?: Never Total Score: 1 Score Reviewed/Action Taken: Yes ELOY-7 AMB Questionnaire ELOY-7 Date ELOY - 7 assessed: 10/23/24 Feeling nervous, anxious, or on edge: 0 = Not at all Not being able to stop or control worryin = Not at all Worrying too much about different things: 0 = Not at all Trouble relaxin = Not at all Being so restless that it is hard to sit still: 0 = Not at all Becoming easily annoyed or irritable: 0 = Not at all Feeling afraid as if something awful might happen: 0 = Not at all Total ELOY-7 score (0-4 normal; 5-9 mild; 10-14 moderate; 15-21 severe): 0 Source: Developed by Drs. Karthik Gooden, Nikkie Lemus, Juan J Perdomo and colleagues, with an educational jacksno from [employer] ELOY-7 Assessment Billing ELOY-7 Assessment Tool: ELOY-7 Assessment 45434 Physical exam (Primary Care) Vital Signs: Last Vital Signs Pulse 81 10/23/24 16:14 BP 120/80 10/23/24 16:14 Pulse Ox 93 10/23/24 16:14 Oxygen Delivery Method Room Air 10/23/24 16:14 BMI result Body Mass Index 28.0 Tobacco/Smoking Status: Tobacco use Status Tobacco use date assessed 10/23/24 10/23/24 16:23 Patient Tobacco Use Status Never used Tobacco 10/23/24 16:17 e-Cigarette/Vaping Use Never Used 10/23/24 16:17 PHQ-9: PHQ-9 Score PHQ-9: Total score 0 10/23/24 16:23 Depression Screening Interpretation: Negative Thrive Assessment: Date of Thrive Assessment Date Thrive assessed 08/22/23 10/23/24 16:17 Currently or been in a relationship where the following occur: I choose not to answer Coding Level of Care Code Est Pt Prev Care 40-64y(96943) Diagnoses Immunizations incomplete Z28.39 Asthma J45.909 SOB (shortness of breath) R06.02 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; U09.9 Skin lesion L98.9 Restless leg G25.81 Additional Codes ELOY-7 Assessment Billing - ELOY-7 Assessment Tool: ELOY-7 Assessment 77412 ([id number]) PHQ-9 - 67086 - PHQ-9 Billing: Yes ([id number]) Assessment & Plan Assessment & Plan (1) Immunizations incomplete: Code(s): Z28.39 - Other underimmunization status Category: Medical (2) Asthma: Code(s): J45.909 - Unspecified asthma, uncomplicated Category: Medical (3) SOB (shortness of breath): Code(s): R06.02 - Shortness of breath Category: Medical (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 Orders: Orders CT chest wo IV con Today J45.909 - Unspecified asthma, uncomplicated, R05.3 - Chronic cough, R06.02 - Shortness of breath, U09.9 - Post COVID-19 condition, unspecified PFT pulmonary function test Today J45.909 - Unspecified asthma, uncomplicated, R05.3 - Chronic cough, R06.02 - Shortness of breath, U09.9 - Post COVID-19 condition, unspecified Resp Allergy Profile Region I Today J45.909 - Unspecified asthma, uncomplicated, R05.3 - Chronic cough, U09.9 - Post COVID-19 condition, unspecified, Z28.39 - Other underimmunization status Immunoglobulin E Today J45.909 - Unspecified asthma, uncomplicated, R05.3 - Chronic cough, U09.9 - Post COVID-19 condition, unspecified, Z28.39 - Other underimmunization status IRON PROFILE Today G2.81 - Restless legs syndrome MMR IgG Measles Mumps Rubella Today Z28.39 - Other underimmunization status Ferritin Today G25.81 - Restless legs syndrome Referrals Dermatology Referral L98.9 - Disorder of the skin and subcutaneous tissue, unspecified Medications: New albuterol sulfate 90 mcg/actuation (Ventolin HFA) 1 puff inhalation QID PRN 8.5 grams 1RF shortness of breath or wheezing
[2024-10-23 16:14] VITALS: BP 120/80; PULSE 81; O2SAT 93; BMI 28.0
== END 2024-10-23 17:00 | disposition home or self-care (01) ==
PROVIDERS: PCP Nurse Practitioner Family; Visit Provider Nurse Practitioner Family
DX: Z00.00 Encounter for general adult medical examination without abnormal findings (principal); Z28.39 Other underimmunization status; R06.02 Shortness of breath; J45.909 Unspecified asthma, uncomplicated; R05.3 Chronic cough; U09.9 Post COVID-19 condition, unspecified; L98.9 Disorder of the skin and subcutaneous tissue, unspecified; G25.81 Restless legs syndrome

== ENCOUNTER → 2024-10-23 16:06 | Outpatient (BNVA) | payer OTHER, SELFPAY | PROVIDERS: PCP Nurse Practitioner Family; Visit Provider Nurse Practitioner Family | DX: Z00.00 Encounter for general adult medical examination without abnormal findings (principal); J45.909 Unspecified asthma, uncomplicated; R06.02 Shortness of breath; R05.3 Chronic cough; U09.9 Post COVID-19 condition, unspecified; L98.9 Disorder of the skin and subcutaneous tissue, unspecified; G25.81 Restless legs syndrome; Z28.39 Other underimmunization status | CPT/HCPCS: 96127 ==

== ENCOUNTER 2024-11-04 09:46 | Outpatient (REF) | payer OTHER, SELFPAY ==
[2024-11-04 13:28] LABS: MANUAL DIFF FLAG NO
[2024-11-04 13:39] LABS: Appearance Urine Turbid; Color Urine Yellow; Glucose Urine UA Negative (Negative); Leukocyte Esterase Urine Small (1+) (Negative); Nitrite Urine Negative (Negative); PH 5.5 (5.0-9.0); Specific Gravity - Urine 1.025 (1.005-1.025); UMIC TRIGGER UACC YES; Urine Blood Negative (Negative); Urine Ketones Trace mg/dL (Negative); Urine Protein Trace mg/dL (Neg-Trace)
[2024-11-04 13:41] LABS: Basophils Absolute Auto 0.1 X10*3/uL (0.0-0.2); Basophils Percent Auto 0.7 % (0-2); Eosinophils Absolute Auto 0.3 X10*3/uL (0.0-0.4); Eosinophils Percent Auto 4.1 % (0-4); Hemoglobin 12.8 g/dl (12.0-16.0); Imm Gran Abs Auto 0.04 X10*3/uL (0.00-0.03); Imm Gran Pct Auto 0.5 % (0.0-0.4); Lymphocytes Absolute Auto 1.7 X10*3/uL (1.2-4.9); Lymphocytes Percent Auto 21.2 % (20-40); Mean Corpuscular HGB Conc 32.8 g/dl (31.0-35.0); Mean Corpuscular Hemoglobin 29.7 pg (27.0-33.0); Mean Corpuscular Volume 90.5 fL (80.0-98.0); Mean Platelet Volume 10.2 fL (9.4-12.3); Monocytes Absolute Auto 0.8 X10*3/uL (0.1-1.2); Monocytes Percent Auto 9.9 % (2-11); Neutrophils Absolute Auto 5.1 x10*3/uL (2.0-8.3); Neutrophils Percent Auto 63.6 % (45-73); Platelet Count 310 X10*3/uL (160-400); Red Blood Count 4.31 X10*6/uL (4.20-5.50); White Blood Count 8.1 X10*3/uL (4.8-10.8)
[2024-11-04 13:46] LABS: Bacteria Urine 3+ (None Seen); Hyaline Casts Urine 0-2 /LPF (0-2); RBC Urine 0-2 /HPF (0-2); Squamous Epithelial Cell Urine >20 /HPF (0-2); UACC Culture Trigger YES
[2024-11-04 14:12] LABS: Alanine Aminotransferase 23 U/L (0-31); Alkaline Phosphatase 55 U/L (39-117); Anion Gap 10 (12-20); Aspartate Amino Transferase 24 U/L (5-31); Bilirubin Total 0.3 mg/dL (0.0-1.0); Blood Urea Nitrogen 19 mg/dL (9-16); Calcium 8.6 mg/dL (8.4-10.2); Carbon Dioxide 26 mmol/L (22-29); Chloride 106 mmol/L (96-108); Cholesterol 218 mg/dL (<200); Estimated Glomerular Filt Rate > 60; Ferritin 36 ng/mL (10-250); Glucose Fasting 103 mg/dL (60-99); HDL Cholesterol 68 mg/dL (>40); Iron 78 mcg/dL (30-160); LDL Cholesterol Calculated 122 mg/dL (<100); Percent Iron Saturation 28 % (15-50); Potassium 3.9 mmol/L (3.3-5.1); Sodium 138 mmol/L (135-145); TSH reflex Free T4 3.77 uIU/mL (0.32-4.0); Total Iron Binding Capacity 275 mcg/dL (228-428); Total Protein 6.7 g/dL (6.5-8.0); Triglycerides 144 mg/dL (<150); Unsaturated Iron Binding 197 ug/dL; Vitamin D 25-OH Total 46.3 ng/mL (>30)
[2024-11-05 23:04] LABS: Rubeola IgG (Measles) >300.00 AU/mL
[2024-11-12 14:48] LABS: Class Mouse Urine Protein 0; E072-IgE Mouse Urine <0.10; Immunoglobulin E 16
[2024-11-12 14:49] LABS: Class Alternaria alternata 0; Class Aspergillus fumigatus 0; Class Cat Dander 0; Class Cladosporium herbarum 0; Class Cockroach 0; Class Dermatophagoides farinae 0; Class Dog Dander 0/1; Class Mountain Cedar 0; Class Timothy Grass 0; D002 - IgE D farinae <0.10; E001 - IgE Cat Dander <0.10; E005 - IgE Dog Dander 0.28; G006 - IgE Timothy Grass <0.10; I006-IgE Cockroach, German <0.10; M002 - IgE Cladosporium herbar <0.10; M003 - IgE Aspergillus fumigat <0.10; M006 - IgE Alternaria alternat <0.10; T006 - IgE Cedar, Mountain <0.10
[2024-11-12 14:50] LABS: Class Bermuda Grass 0; Class Birch 0; Class Common Ragweed 0; Class Cottonwood 0; Class Derm. pterony 0; Class Elm 0; Class Maple Box Elder 0; Class Mugwort 0; Class Oak 0; Class Penicillium crysogenum 0; Class Rough Pigweed 0; Class Sheep Sorrel 0; Class Sycamore 0; Class Walnut Tree 0; Class White Ash 0; Class White Mulberry 0; D001 IgE D pteronyssinus <0.10; G002 IgE Bermuda Grass <0.10; M001 IgE Penicillium chrysogen <0.10; T001 IgE Maple/Box Elder <0.10; T003 IgE Common Silver Birch <0.10; T007 - IgE Oak, White <0.10; T008 IgE Elm, American <0.10; T010 - IgE Walnut <0.10; T011 - IgE Maple Leaf Sycamore <0.10; T014 - IgE Cottonwood <0.10; T015 - IgE Ash, White <0.10; T070 - IgE White Mulberry <0.10; W001 - IgE Ragweed, Short <0.10; W006 - IgE Mugwort <0.10; W014 IgE Pigweed, Common <0.10; W018 IgE Sheep Sorrel <0.10
== END 2024-11-04 09:47 | disposition home or self-care (01) ==
LOC: HO.HMGCLDS 09:46
PROVIDERS: PCP Nurse Practitioner Family; Visit Provider Nurse Practitioner Family
DX: E78.5 Hyperlipidemia, unspecified (principal); R05.3 Chronic cough; U09.9 Post COVID-19 condition, unspecified; J45.909 Unspecified asthma, uncomplicated; Z28.39 Other underimmunization status; G25.81 Restless legs syndrome; E55.9 Vitamin D deficiency, unspecified; R30.0 Dysuria
CPT/HCPCS: 36415; 80053; 80061; 81001; 82306; 82728; 82785; 83540; 84443; 85025; 86003; 86735; 86762; 86765; 87086

== ENCOUNTER 2024-12-11 13:05 | Outpatient (REF) | payer OTHER, SELFPAY ==
--- NOTE | ~2024-12-11 | CT_ITS ---
EXAMINATION: CT CHEST WITHOUT IV CONTRAST INDICATION: J45.909 - Unspecified asthma, uncomplicated COMPARISON: There are no prior studies available for comparison. TECHNIQUE: Helical CT scan of the chest was performed without intravenous contrast. Coronal and sagittal reformatted images were generated and reviewed. This CT exam was performed with one or more of the following dose reduction techniques: automated exposure control, adjustment of the mA and/or kV according to patient size, use of iterative reconstruction technique. DLP: 166 mGy-cm CHEST: THYROID: The thyroid is unremarkable. LUNGS: There is minimal linear scarring in the lingula. There is a 5 mm subpleural nodule in the left lower lobe (series 8, image 124) without change. The lungs are otherwise clear. MEDIASTINUM: There is no mediastinal lymphadenopathy. YESENIA: Evaluation of the hilar regions is limited by lack of intravenous contrast material. CARDIOVASCULATURE: The heart is normal in size. There is no pericardial effusion. The thoracic aorta is normal in caliber. DEGREE OF CORONARY CALCIFICATION: mild PLEURA: There is no pleural effusion. No pneumothorax. MAIN AIRWAYS: The mainstem bronchi and proximal branches are patent. AXILLA: There is no axillary lymphadenopathy. BONES AND SOFT TISSUES: There is a mild compression deformity involving the superior endplate of L1 which is new from the prior study. UPPER ABDOMEN: There is a 1.8 cm cyst in the left lobe of the liver. The visualized portions of the spleen and and adrenals have an unremarkable unenhanced appearance. CT/CT chest wo IV con IMPRESSION: Stable 5 mm subpleural nodule in the left lower lobe. No focal airspace opacities are identified. Electronically signed by: Karthik Thomas MD 12/11/2024 02:44 PM EDT
--- NOTE | 2024-12-11 14:50 | PFT_ITS ---
Indication: Asthma Spirometry [FEV1 to FVC 71%; FEV1 1.7 L; FVC 2.62 L. no significant response to bronchodilators noted. Of note the FEF 25-75 decrease to 48% predicted suggesting small airways disease in her history of asthma] Lung Volumes [Total lung capacity 85% predicted; residual volume 94% predicted] Diffusion Capacity [DLCO 89% predicted] Comparisons [none] Interpretation [The patient has a partially reversible obstructive ventilatory defect consistent with uncontrolled asthma versus asthma COPD overlap syndrome. No significant response to bronchodilators noted. Again small airways disease consistent with history of asthma. Lung volumes and diffusing capacity are within normal limits. Clinical correlation warranted.] MTDD
[2024-12-11 15:17] VITALS: PULSE 66; O2SAT 92
== END 2024-12-11 13:06 | disposition home or self-care (01) ==
LOC: HO.CT 13:05
PROVIDERS: PCP Nurse Practitioner Family; Visit Provider Nurse Practitioner Family
DX: J45.909 Unspecified asthma, uncomplicated (principal); R06.02 Shortness of breath; R05.3 Chronic cough; U09.9 Post COVID-19 condition, unspecified
CPT/HCPCS: 71250; 94010; 94640; 94727; 94729

== ENCOUNTER → 2024-12-11 13:13 | Outpatient (BNV) | payer OTHER, SELFPAY | PROVIDERS: PCP Nurse Practitioner Family; Visit Provider Radiology Diagnostic Radiology | DX: R91.1 Solitary pulmonary nodule (principal) | CPT/HCPCS: 71250 ==

== ENCOUNTER → 2024-12-11 14:50 | Outpatient (BNV) | payer OTHER, SELFPAY | PROVIDERS: PCP Nurse Practitioner Family; Visit Provider Hospitalist | DX: J45.909 Unspecified asthma, uncomplicated (principal) | CPT/HCPCS: 94060; 94727; 94729 ==

== ENCOUNTER → 2025-02-09 12:59 | Outpatient (REF) | payer OTHER, SELFPAY ==
--- NOTE | 2025-02-09 13:05 | CA_ITS ---
Transthoracic Echocardiogram Patient (Last, First, Middle): Catalina Boggs, Gender: Female Date of : 1960 Age: 64 Procedure Date: 02/09/2025 Procedure Type: Transthoracic Echocardiogram Location: OP Height: 162.56 cm Weight: 74.84 kg BSA: 1.80 m2 Heart Rate: 57 bpm BP: 145 / 70 mmHg Long Filler Cigar Roller Machine: ADA Swan MD: Rodrigo Mayer [facility] Lease Buyer: Sabas Baird MD Symptoms: R00.2 - Palpitations Study Quality: Adequate ECG Rhythm: Sinus Conclusions: - 1. Normal LV ejection fraction of 65-70% with impaired relaxation filling pattern 2. Trivial aortic regurgitation 3. Normal RV systolic pressure 4. No gross pericardial effusion Findings Left Ventricle Normal left ventricular size, thickness, and systolic function. The visually estimated ejection fraction is between 65-70%. Spectral Doppler is indicative of an impaired relaxation filling pattern. E/E prime ratio is between 8 and 15 consistent with indeterminate filling pressures. Right Ventricle Normal right ventricular cavity size and systolic function. Atria Both atria are normal in size. Interatrial shunt cannot be excluded. Aortic Valve The aortic valve structure and function is likely normal. There is no aortic valve stenosis. There is trace (trivial) aortic valve regurgitation. Mitral Valve Normal mitral valve structure and function. There is trace mitral valve regurgitation. There is no mitral valve stenosis. Pulmonic Valve The pulmonic valve is likely normal. Tricuspid Valve Likely normal tricuspid valve structure and function. There is trace tricuspid valve regurgitation. The right ventricular systolic pressure is normal. The right ventricular systolic pressure is 11 mmHg. Normal right atrial pressure. There is no evidence of pulmonary hypertension. Great Vessels All visible segments of the aorta are normal in size. The pulmonary artery was not well visualized. There is no dilatation of the ascending aorta measuring 3.20 cm. Venous The inferior vena cava is normal in size and collapses greater than 50% with inspiration. Pericardium/Pleural There is no evidence of pericardial effusion. Measurements 2D Linear Measurements IVSd: 0.76 0.6-0.9/0.6-1.0 cm LVIDd: 4.55 3.9-5.3/4.2-5.9 cm LVIDd Index: 2.53 2.4-3.2/2.2-3.1 cm/m2 LVIDs: 2.76 2.0-3.6 cm LVPWd: 0.82 0.7-1.1 cm LA Diam: 3.70 2.7-3.8/3.0-4.0 cm LAIDs Index: 2.06 1.5-2.3 cm/m2 LV Mass: 142.54 67-162/88-224 g LV Mass Index: 79.19 43-95/49-115 g/m2 LVOT Diam: 2.00 3.0+(-)1.3 cm 2D Systolic Function EF 4C: 70.80 >55% EF 2C: 69.90 >55% EF BiP: 69.90 >55% Mitral Valve MV Pk E: 0.92 MV PK A: 0.74 MV Decel Time: 147.00 E/A: 1.20 E'Lateral: 9.36 E'Medial: 6.85 E/E' Med: 13.40 E/E' Lat: 9.80 PHT: 43.00 MVA PHT: 5.12 Decel [place]: 6.26 Aortic Valve AoV Pk Ruddy: 1.47 AoV Mn Ruddy: 1.00 AoV VTI: 0.34 AoV Pk Grad: 9.00 Aov Mn Grad: 5.00 CECY Cont.VTI: 2.15 AI Pk Ruddy: 3.21 AI [place]: 1.05 LVOT LVOT Pk Ruddy: 1.01 LVOT Mn Ruddy: 0.73 LVOT VTI: 0.24 LVOT Pk Grad: 4.00 LVOT Mn Grad: 2.00 LVOT Diam: 2.00 LVOT Area: 3.14 Diastolic Function MV Pk E: 0.92 MV Pk A: 0.74 E/A: 1.20 E'Medial: 6.85 E/E' Med: 13.40 E' Laterial: 9.36 E/E' Lat: 9.80 Right Ventricle TAPSE (mm): 22.60 TVS' Ruddy: 11.00 Tricuspid Valve TR Pk Ruddy: 1.42 TR Pk Grad: 8.00 RA Press: 3.00 RVSP: 11.00 Great Vessels Aorta Sinus of Valsalva: 2.70 2.0-3.5 cm Ao Asc: 3.20 2.1-3.4 cm Ao Arch: 2.60 Pulmonary Valve PV Pk Ruddy: 1.00 Peak PV Grad: 4.00 Updated in Other Vendor System with Status of Final Sabas Baird MD electronically signed on 02/09/2025 3:35:23 PM with status of Final
== END ==
LOC: HO.CARD 12:59
PROVIDERS: PCP Nurse Practitioner Family; Visit Provider Nurse Practitioner Family
DX: R07.89 Other chest pain (principal); R00.2 Palpitations; J98.4 Other disorders of lung; R91.1 Solitary pulmonary nodule; J45.40 Moderate persistent asthma, uncomplicated
CPT/HCPCS: 93306

== ENCOUNTER → 2025-02-09 13:05 | Outpatient (BNV) | payer OTHER, SELFPAY | PROVIDERS: PCP Nurse Practitioner Family; Visit Provider Internal Medicine Cardiovascular Disease | DX: R00.2 Palpitations (principal) | CPT/HCPCS: 93306 ==

== ENCOUNTER 2025-02-09 14:43 | Outpatient (AMB) | payer OTHER, SELFPAY ==
--- NOTE | 2025-02-09 14:45 | MHC.OFFVIS ---
Vital Signs 02/09/25 14:46 Height 5 ft 5 in Weight 170 lb 13.732 oz BMI 28.4 BP 150/70 H Blood Pressure Location Lt brachial Position Sitting Pulse 79 Pulse Source Pulse Oximeter Pulse Oximetry (%) 94 Oxygen Delivery Method Room Air Intake Visit Reasons: Asthma Director Biology Required: No Accompanied by: Self / Same As Patient Allergies Bees Allergy (Unknown, Uncoded 12/23/24 10:14) Feels faint/unstable Erythromycin Allergy (Unknown, Uncoded 12/23/24 10:14) Eye swelling HPI Comments Details: The patient is here for a pulmonary evaluation. The patient is a 64 year woman with a known history of asthma as a child who apparently has had worsening respiratory symptoms for the last few months. Apparently back in June 2024 she ended up with a 3rd course of COVID. She did have increased respiratory symptoms. It was not as bad as the 1 but it was significant. After she started developing a cough and some shortness of breath. More recently she has had more issues with chest tightness and a nonproductive cough and sometimes goes into a prolonged coughing spell. She recently we did go to [place] to the beach and she did feel better while there and [place] a lot of her symptoms returned. 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 Denies any exposure to any firearms or pets. She does have a lot of stress that she is dealing with and also the humidity since 2 bother her as well. She did undergo pulmonary function studies back in November which I personally reviewed with her. Her FEV1 to FVC was only 70% pre bronchodilators and 71% post bronchodilators suggesting partial reversibility. Likely uncontrolled asthma. The patient was given a prescription for Symbicort but she has not started as of yet. I did provide her with a spacer for her to use with the Symbicort to see if this can provide better distribution of the medication. Also provide her with a peak flow to measure pre and post symptoms. The patient also had a CT scan of the chest in November 2024 which I personally reviewed with her. Also did compare to a CAT scan she had back in 2022. She does have an area in the lingula left upper lobe area of ground-glass opacity suggesting some degree of pneumonitis. She did not have this back in 2022. In addition to that she has a left lower lobe pulmonary nodule which appears to be popcorn like almost like a small hamartoma measuring about 5 mm in size. Back in 2022 was measuring between 3-4 mm in size. Therefore it appears to be slightly larger. Explained to her that even benign growth can grow. In this case hematoma will be a benign tumor type. Still though since it increasing size any to be monitored. Will decide went to do a CAT scan during the next visit but likely we can wait till November of 2024. However, if she continues to be symptomatic we may want to do it earlier specially because she had an area of pneumonitis. [facility] Medical History (Updated 02/09/25 @ 23:22 by Arnie Hagan MD) Pneumonitis Pulmonary nodule Chronic cough Dyslipidemia Headache syndrome Anxiety Hip pain Hand pain Surgical History S/P lateral meniscus repair of right knee History of removal of cyst Family History Father Arthritis Diabetes mellitus Cataract Mother HTN (hypertension) Glaucoma History of angina Maternal Grandfather Myocardial infarction Maternal Grandmother Stroke Paternal Grandmother No problems noted. Paternal Grandfather Myocardial infarction Brother No problems noted. Sister No problems noted. Son No problems noted. Daughter No problems noted. Social History Housing: House Alcohol intake: current Alcohol intake frequency: a few times a month Patient Tobacco Use Status: Never used Tobacco e-Cigarette/Vaping Use: Never Used Second Hand Smoke Exposure: No service: No Current occupational status: employed Current occupation: teacher Cognitive needs: No Hearing needs: No Vision needs: No Review of Systems Const Denies chills and Denies fever(s) Eyes Denies blurry vision ENT Denies vertigo, Denies dizziness and Denies sore throat Card Denies chest pain at rest, Denies chest pain with activity, Denies diaphoresis and Reports dyspnea on exertion Resp Reports cough, Reports dyspnea on exertion and Reports wheezing GI Denies abdominal pain, Denies melena, Denies hematochezia, Denies constipation, Denies diarrhea and Denies loose stools Denies hematuria Musc Denies numbness and Denies tingling Skin/Breast Denies lesions Neuro Denies vertigo, Denies dizziness, Denies numbness and Denies tingling Psych Denies anxiety, Denies depression, Denies homicidal ideation, Denies suicidal ideation and Denies other (substance abuse) Aller/Immun Reports wheezing Physical Exam Vital Signs: Last Vital Signs Pulse 79 02/09/25 14:46 BP 150/70 H 02/09/25 14:46 Pulse Ox 94 02/09/25 14:46 Oxygen Delivery Method Room Air 02/09/25 14:46 BMI result Body Mass Index 28.4 Const General: cooperative and healthy appearing Nutritional Appearance: well nourished Orientation/consciousness: patient oriented x3 Limitations: no limitations HEENT Head: Yes normal to inspection Eyes General: appearance normal, both eyes and all related structures Neck Neck: Yes normal visual inspection and Yes full ROM Chest Chest palpation & inspection: normal inspection of the chest Resp Effort & Inspection: normal respiratory effort Auscultation: clear to auscultation bilaterally Cardio Heart sounds: S1 normal heart sound present and S2 normal heart sound present GI Palpation (GI): Soft to palpation Skin General skin exam: no rashes or lesions noted Neuro General: patient oriented x3 Extrem General: Yes no clubbing, cyanosis or edema Results Reviewed Results Reviewed: Assessment & Plan Assessment & Plan (1) Chronic cough: Code(s): R05.3 - Chronic cough Category: Medical (2) Pulmonary nodule: Code(s): R91.1 - Solitary pulmonary nodule Category: Medical (3) Pneumonitis: Code(s): J98.4 - Other disorders of lung Category: Medical (4) Asthma: Code(s): J45.909 - Unspecified asthma, uncomplicated Category: Medical Qualifiers: Asthma severity: moderate Asthma persistence: persistent Asthma complication type: uncomplicated Qualified Code(s): J45.40 - Moderate persistent asthma, uncomplicated (5) SOB (shortness of breath): Code(s): R06.02 - Shortness of breath Category: Medical Plan start Symbicort, spacer provided check peak flows RADHA as needed Consider allergy testing Awaiting cardiac evaluation Will need F/U for the LLL pulmonary nodule and area of pneumonitis. If the patient clinically improves, then 11/2025. Otherwise, we may need to evaluate earlier F/U 2 months with spirometry Orders: Orders CT chest wo IV con 11/23/25 R91.1 - Solitary pulmonary nodule Coding Level of Care Code New Pt Level 4 (97005) Diagnoses Chronic cough R05.3 Pulmonary nodule R91.1 Pneumonitis J98.4 Moderate persistent asthma without complication J45.40 Asthma severity: moderate Asthma persistence: persistent Asthma complication type: uncomplicated SOB (shortness of breath) R06.02 Time Spent (min) 45
[2025-02-09 14:46] VITALS: BP 150/70; PULSE 79; O2SAT 94; BMI 28.4
== END 2025-02-09 15:31 | disposition home or self-care (01) ==
LOC: HO.HPS 14:44
PROVIDERS: PCP Nurse Practitioner Family; Referring Provider Nurse Practitioner Family; Visit Provider Hospitalist
DX: R05.3 Chronic cough (principal); R91.1 Solitary pulmonary nodule; J98.4 Other disorders of lung; J45.40 Moderate persistent asthma, uncomplicated; R06.02 Shortness of breath
CPT/HCPCS: 99204

== ENCOUNTER → 2025-02-17 08:05 | Outpatient (REF) | payer OTHER, SELFPAY ==
--- NOTE | 2025-02-17 08:08 | HM_ITS ---
Conclusion: 1. Patient was monitored for total period of 3 days 2. Baseline was normal sinus rhythm with average heart of 74 beats per minute 3. No significant arrhythmias or pauses noted 4. No patient reported events MTDD
--- NOTE | 2025-02-17 08:08 | CA_ITS ---
Acquisition Time: 2025-02-17 08:08:05 Total Exercise Time: 00:07:15 Test Indications: CP Medications: SEE H&P Protocol: RONALD Max HR: 133 BPM 84% of Pred: 157 BPM Max BP: 190/64 mmHG Max Work Load: 8.9 METS Exercise stress test with exercise 7 mins 15 secs of Ronald Protocol, achieving 84% MPHR, with reports of mild SOB, no chest pain, with isolated PACs, with normotensive response to exercise. With borderline ST changes with exercise, warranting further testing. Recommend nuclear stress test for further evaluation. Nuclear images pending. Test reviewed with Dr. Israel. Referred By: Rodrigo Mayer Electronically Signed By: Juan Flowers
--- OUTSIDE RECORDS SUMMARY | 2025-02-17 08:08 | XMS_ITS | Patient Health Record ---
Author Organization [facility] Address [address] [place] [address] Care Team Providers Care Assistant Professor In Family Studies Name Role Phone Rodrigo Moralez Primary Care Provider Unav Ernie Hawthorne Unavailable [phone] Allergies Allergen (clinical drug ingredient) Drug/Non Drug Allergy documented on EMR Reaction Allergy Type Onset Date Status erythromycin Erythromycin Unknown Drug Allergy A ctive Reason For Referral No Information Medications Medication SIG (Take, Route, Fr equency, Duration) Notes Start Date End Date Status Prema Active Meloxicam 15 MG 1 tablet Orally Once a day; Duration: 30 day(s) Active lipitor 20 MG Active Flonase nasal Active traZODone HCl 50 MG Orally Active Wellbutrin 150 MG Ac tive Physical Therapy . . . 2-3x/week; Durat ion: 3-4 weeks Active Social History Tobacco Use: Social History Observation Description Date Details (start date - stop date) Never Smoker NA - NA Tobacco Use/Smoking Question Answer Notes Are you a: nonsmoker Additional Findings: Tobacco Non-User Current no n-smoker Alcohol Screen Question Answer Notes Did you have a drink contain ing alcohol in the past year? Yes How often did you have a dri nk containing alcohol in the past year? Monthly or less (1 point) Points 1 Interpretation Negative Tobacco use other than smoking: Question Answer Notes Are you an other tobacco user? No Problems Problem Type SNOMED Code ICD Code Onset Dates Problem Status W/U Status Risk Notes Problem Localized, primary osteoarthritis of the ankle and/or foot (682073194) Primary osteoarthrit is, right ankle and foot (M19.071) Active confirmed Problem Localized, primary osteoarthritis of the ankle and/or foot (141353624) Primary osteoarthrit is, left ankle and foot (M19.072) Active confirmed Plan Of Treatment Pending Test Test Name Order Date X ray : Foot, left 3V 01/24/2017 X ray : Foot, right 3V 01/24/2017 [id number] Destruction, 1-14 12/31/2017 Insurance Providers Payer Name Payer Address Payer Phone Subscriber Number Group Number Insured Name Patient Relationship to Insured Coverage Start Date Coverage End Date [facility] [address] [place] [address] [id number] Jennifer Good Spouse - patient is the spouse of the insured Medical (General) History Medical History History ICD Code Anxiety asthma Back,Hip,and Knee pain
== END ==
LOC: HO.CARD 08:05
PROVIDERS: PCP Nurse Practitioner Family; Visit Provider Nurse Practitioner Family
DX: R00.2 Palpitations (principal); R07.89 Other chest pain
CPT/HCPCS: 93017; 93242

== ENCOUNTER → 2025-02-17 08:08 | Outpatient (BNV) | payer OTHER, SELFPAY | PROVIDERS: PCP Nurse Practitioner Family | DX: I49.1 Atrial premature depolarization (principal); R06.02 Shortness of breath | CPT/HCPCS: 93016; 93018 ==

== ENCOUNTER → 2025-02-26 08:56 | Outpatient (REF) | payer OTHER, SELFPAY ==
--- NOTE | ~2025-02-26 | NM_ITS ---
EXERCISE MYOCARDIAL PERFUSION STUDY INDICATION: Atherosclerotic coronary artery disease to evaluate for myocardial ischemia TECHNIQUE: The patient was brought in for an exercise perfusion study on 02/26/2025. Patient performed exercise as per Ra protocol and was injected 25 mCi of sestamibi once target heart rate was achieved. Images were obtained using the SPECT gamma camera interlaced with the gating device. Images were obtained in supine position. Resting perfusion study was performed on 03/03/2025. Patient was administered 25 mCi of sestamibi intravenously at rest. Images were then obtained in supine position. Images obtained without without CT attenuation. Total DLP 95 mGy-cm. Images were processed with the software and compared side to side in short axis, horizontal long axis and vertical long axis views. FINDINGS: Raw images were reviewed The stress perfusion study showed both attenuated as well as nonattenuated corrected images show normal uptake of radiotracer in all segments of the LV myocardium. The gated study shows normal LV systolic function with calculated LVEF of 59%. LV cavity is normal in size. The gated study shows normal systolic wall thickening and contraction of segments. Resting study shows nonattenuated images show normal uptake of radiotracer in all segments of the LV myocardium. Gating at rest reveals normal systolic wall motion with ejection fraction at 61%. The findings are consistent with normal myocardial perfusion. NM/NM cardiolite stress test IMPRESSION: 1. Myocardial perfusion imaging study shows normal myocardial perfusion. 2. Gated LVEF is 59%. 3. Transient ischemic dilatation not present. EKG revealed [positive for ischemia. Electronically signed by: Sabas Baird MD 03/03/2025 04:25 PM EDT
--- NOTE | 2025-02-26 08:59 | CA_ITS ---
Acquisition Time: 2025-02-26 09:08:04 Total Exercise Time: 00:08:15 Test Indications: CAD Medications: SEE H&P Protocol: RONALD Max HR: 131 BPM 83% of Pred: 157 BPM Max BP: 174/60 mmHG Max Work Load: 10.1 METS Exercise stress test with exercise 8 mins 15 secs of Ronald Protocol, achieving 83% MPHR, with reports of SOB, no chest pain, with isolated PACs and PVCs, with normotensive response to exercise. With ST depression inferiorly and in leads V3-V6, meeting criteria for ischemia. In recovery, ST segment improved and breathing returned to baseline. Nuclear images pending. Test reviewed with Dr. Aguilar. Referred By: Rodrigo Mayer Electronically Signed By: Juan Flowers
--- OUTSIDE RECORDS SUMMARY | 2025-02-26 09:16 | XMS_ITS | Patient Health Record ---
Author Organization [facility] Address [address] [place] [address] Care Team Providers Care Supervisor Cured [employer]ats Name Role Phone Rodrigo Moralez Primary Care Provider Unav Ernie Hawthorne Unavailable [phone] Allergies Allergen (clinical drug ingredient) Drug/Non Drug [...] primary osteoarthritis of the ankle and/or foot ([id number]) Primary osteoarthrit is, right ankle and foot (M19.071) Active confirmed Problem Localized, primary osteoarthritis of the ankle and/or foot (795993604) Primary osteoarthrit is, left ankle and foot (M19.072) Active confirmed Plan Of Treatment Pending Test Test Name Order Date X ray : Foot, left 3V 01/24/2017 X ray : Foot, right 3V 01/24/2017 [id number] Destruction, 1-14 12/31/2017 Insurance Providers Payer Name Payer Address Payer Phone Subscriber Number Group Number Insured Name Patient Relationship to Insured Coverage Start Date Coverage End Date [facility] [address] [place] [address] [phone] [id number] Jennifer Good Spouse - patient is the spouse of the insured Medical (General) History Medical History History ICD Code Anxiety asthma Back,Hip,and Knee pain
== END ==
LOC: HO.CARD 08:56
PROVIDERS: PCP Nurse Practitioner Family; Visit Provider Nurse Practitioner Family
DX: I25.10 Atherosclerotic heart disease of native coronary artery without angina pectoris (principal); R07.89 Other chest pain; R00.2 Palpitations
CPT/HCPCS: 78452; 93017; A9500

== ENCOUNTER → 2025-02-26 08:59 | Outpatient (BNV) | payer OTHER, SELFPAY | PROVIDERS: PCP Nurse Practitioner Family | DX: I25.10 Atherosclerotic heart disease of native coronary artery without angina pectoris (principal) | CPT/HCPCS: 78452; 93016; 93018 ==

== ENCOUNTER 2025-05-13 15:26 | Outpatient (AMB) | payer OTHER, SELFPAY ==
--- NOTE | 2025-05-13 15:29 | A.OFFPC_ITS ---
Vital Signs 05/13/25 15:30 Height 5 ft 5 in Weight 178 lb BMI 29.6 BP 120/62 Blood Pressure Location Lt brachial Position Sitting Pulse 71 Temp 98.1 F Temp Source Oral Pulse Oximetry (%) 96 Oxygen Delivery Method Room Air Intake Visit Reasons: 6 months f/up Tester Wafer Substrate Required: No Accompanied by: Self / Same As Patient Allergies Bees Allergy (Unknown, Uncoded 12/23/24 10:14) Feels faint/unstable Erythromycin Allergy (Unknown, Uncoded 12/23/24 10:14) Eye swelling Medication List - Last Reconciled 05/13/25 by Rodrigo Mayer, [employer]- albuterol sulfate 90 mcg/actuation (Ventolin HFA) 1 puff inhalation QID PRN budesonide-formoterol 80-4.5 mcg/actuation (Symbicort) 1 puff inhalation BID bupropion HCl XL 300 mg PO DAILY cetirizine (Zyrtec) 10 mg PO DAILY PRN diclofenac sodium 1% (Arthritis Pain (diclofenac)) 4 grams topical QID 30 days estradiol 1 patch transdermal QWEEK fluticasone propionate 50 mcg/actuation 2 sprays intranasal DAILY 90 days ibuprofen (Motrin IB) 400 mg PO Q8H Lactobacillus acidophilus (Probiotic Acidophilus) 100 mmu cells PO DAILY lovastatin 40 mg PO DAILY 90 days progesterone micronized mg PO simethicone (Gas Relief (simethicone)) 250 mg (2 x 125 mg) PO BID PRN 30 days trazodone 150 mg (3 x 50 mg) PO BEDTIME 90 days Tobacco use date assessed: 05/13/25 Dental Screening Dental Screen Date: 05/13/25 Did you have a dental visit in the last 12 months?: Yes Did you have a dental problem in the last 6 months where you did not have access to dental care?: No Was dental information given to patient?: Patient has dentist HPI 6 months f/up HPI Details Chief Complaint The patient presents for a follow-up visit for management of dyslipidemia. History of Present Illness The patient is a 64-year-old female presenting for a follow-up visit for dyslipidemia. She is currently taking lovastatin 40 mg. Social History - Diet: The importance of diet was reinf orced, and the patient states she will work on it. Health Maintenance - The importance of diet was reinforced. Review of Systems denies any cp, sob, dizziness, blurred vision, RAI Physical Exam General: Cooperative, healthy appearing, comfortable, no acute distress and well developed Orientation: Patient oriented x3 Limitations: No limitations Head: Normal to inspection Ears: Hearing grossly normal bilaterally Nose: Normal external nose present Face and sinus: Normal facial exam Eyes: Appearance normal, both eyes and all related structures Neck: Normal visual inspection and Yes full ROM Respiratory: Normal respiratory effort and able to speak in complete sentences. Clear to auscultation bilaterally Cardiovascular: Regular rate and rhythm. Normal S1 and S2, faint systolic murmur GI: Normal to inspection. Soft to palpation and nontender Skin: No rashes or lesions noted Neuro: Patient oriented x3 Extremities: Trace edema to bilateral extremities Results Plan 1. Dyslipidemia The patient is on lovastatin 40 mg. Labs have been ordered to monitor cholesterol levels. The importance of diet was reinforced. 2. Edema The patient was noted to have trace edema in the bilateral extremities on examination. encouraged to watch sodium levels in diet Discussion Notes I have ordered lab work to assess the patient's cholesterol levels in the near future. I reinforced the importance of adhering to a healthy diet, which the patient agreed to work on. Patient Instructions - Please get your lab work done to check your cholesterol levels. - It is important to continue to focus o n your diet. [facility] Medical History Pneumonitis Pulmonary nodule Chronic cough Dyslipidemia Headache syndrome Anxiety Hip pain Hand pain Surgical History S/P lateral meniscus repair of right knee History of removal of cyst Family History Father Arthritis Diabetes mellitus Cataract Mother HTN (hypertension) Glaucoma History of angina Maternal Grandfather Myocardial infarction Maternal Grandmother Stroke Paternal Grandmother No problems noted. Paternal Grandfather Myocardial infarction Brother No problems noted. Sister No problems noted. Son No problems noted. Daughter No problems noted. Social History Housing: House Alcohol intake: current Alcohol intake frequency: a few times a month Patient Tobacco Use Status: Never used Tobacco e-Cigarette/Vaping Use: Never Used Second Hand Smoke Exposure: No service: No Current occupational status: employed Current occupation: teacher Cognitive needs: No Hearing needs: No Vision needs: No Questionnaire PHQ-9 Over the last 2 weeks, how often have you been bothered by any of the following problems? 1. Little interest or pleasure in doing things: not at all 2. Feeling down, depressed, or hopeless: not at all 3. Trouble falling or staying asleep, or sleeping too much: not at all 4. Feeling tired or having little energy: not at all 5. Poor appetite or overeating: not at all 6. Feeling bad about yourself - or that you are a failure or have let yourself or your family down: not at all 7. Trouble concentrating on things, such as reading the newspaper or watching television: not at all 8. Moving or speaking so slowly that other people could have noticed. Or the opposite - being so fidgety or restless that you have been moving around a lot more than usual: not at all 9. Thoughts that you would be better off or of hurting yourself in some way: not at all Total score: 0 Depression Screening Interpretation: Negative Depression Screening Done: Yes 45479 - PHQ-9 Billing: Yes Source: Developed by Drs. Karthik Gooden, Nikkie Lemus, Juan J Perdomo and colleagues, with an educational jackson from [employer]. Thrive Questionnaire Date Thrive assessed: 10/23/24 I am a: Patient What is your living situation today?: I choose not to answer this question Within the past 12 months, did the food you bought not last and you didn't have the money to get more?: I choose not to answer this question Within the past 12 months, did you worry whether your food would run out before you got money to buy more?: I choose not to answer this question Do you have trouble paying for medicines?: I choose not to answer this question Do you have trouble getting transportation to medical appointments?: I choose not to answer this question Do you have trouble paying your heating and electricity bill?: I choose not to answer this question Do you have trouble taking care of your child, family member or friend?: I choose not to answer this question Do you have trouble with day-to-day activities such as bathing, preparing meals, shopping, managing finances, etc.?: I choose not to answer this question Are you currently unemployed and looking for a job?: I choose not to answer this question Are you interested in more education?: I choose not to answer this question Please select the resources that you would like help with: None Currently or been in a relationship where the following occur: I choose not to answer THRIVE Score: 0 ELOY-7 AMB Questionnaire ELOY-7 Date ELOY - 7 assessed: 05/13/25 Feeling nervous, anxious, or on edge: 0 = Not at all Not being able to stop or control worryin = Not at all Worrying too much about different things: 0 = Not at all Trouble relaxin = Not at all Being so restless that it is hard to sit still: 0 = Not at all Becoming easily annoyed or irritable: 0 = Not at all Feeling afraid as if something awful might happen: 0 = Not at all Total ELOY-7 score (0-4 normal; 5-9 mild; 10-14 moderate; 15-21 severe): 0 Source: Developed by Drs. Karthik Gooden, Nikkie Lemus, Juan J Perdomo and colleagues, with an educational jackson from [employer]. ELOY-7 Assessment Billing ELOY-7 Assessment Tool: ELOY-7 Assessment 29465 Physical exam (Primary Care) Vital Signs: Last Vital Signs Temp 98.1 F 05/13/25 15:30 Pulse 71 05/13/25 15:30 BP 120/62 05/13/25 15:30 Pulse Ox 96 05/13/25 15:30 Oxygen Delivery Method Room Air 05/13/25 15:30 BMI result Body Mass Index 29.6 Tobacco/Smoking Status: Tobacco use Status Tobacco use date assessed 05/13/25 05/13/25 15:37 Patient Tobacco Use Status Never used Tobacco 05/13/25 15:37 e-Cigarette/Vaping Use Never Used 05/13/25 15:37 PHQ-9: PHQ-9 Score PHQ-9: Total score 0 05/13/25 16:06 Depression Screening Interpretation: Negative Thrive Assessment: Date of Thrive Assessment Date Thrive assessed 10/23/24 05/13/25 15:37 Currently or been in a relationship where the following occur: I choose not to answer Immunizations pneumoc 20-gudelia conj-dip cr(PF) 0.5 mL IM syringe Performing Provider: SUSHMA Chandra Performing Location: [facility] Administered by: ANDREA Mccarthy on 05/13/25 16:29 Dose Route Admin Location Dispensed Lot Number Expiration Date [place] Administrative Sales Assistant 0.5 mL IM Left Deltoid 0.5 mL [id number] 09/12/25 [employer] /PFIZER Total Dispensed Waste 0.5 mL 0 % VIS Given Date VIS Provided VIS Publication Date 05/13/25 Single Vaccine 24 Eligibility Eligibility Date Funding Source Not [facility] Eligible 05/13/25 Private Coding Level of Care Code Est Pt Level 3 (05038) Diagnoses Dyslipidemia E78.5 Vitamin D deficiency E55.9 Additional Codes ELOY-7 Assessment Billing - ELOY-7 Assessment Tool: ELOY-7 Assessment 61076 ([id number]) PHQ-9 - 53864 - PHQ-9 Billing: Yes ([id number]) Assessment & Plan Assessment & Plan (1) Dyslipidemia: Code(s): E78.5 - Hyperlipidemia, unspecified Category: Medical (2) Vitamin D deficiency: Code(s): E55.9 - Vitamin D deficiency, unspecified Category: Medical Plan . Orders: Orders Comprehensive [place]. Panel Fast Today E78.5 - Hyperlipidemia, unspecified TSH reflex Free T4 Today E78.5 - Hyperlipidemia, unspecified UA CC w/rflx Micro + Cult Today E78.5 - Hyperlipidemia, unspecified Pneumococcal 20 Immunization Today Z23 - Encounter for immunization Complete Blood Count Auto Diff Today E78.5 - Hyperlipidemia, unspecified Lipid Panel Today E78.5 - Hyperlipidemia, unspecified Vitamin D 25-OH Total Today E55.9 - Vitamin D deficiency, unspecified
[2025-05-13 15:30] VITALS: BP 120/62; PULSE 71; TEMP 36.7; O2SAT 96; BMI 29.6
--- OUTSIDE RECORDS SUMMARY | 2025-05-13 19:48 | XMS_ITS | Patient Health Record ---
Author Organization [facility] Address [address] [place] [address] Care Team Providers Care Supervisor Soakers Name Role Phone Rodrigo Moralez Primary Care Provider Unav ailable Ernie Sahni Unavailable [phone] Allergies Allergen (clinical drug ingredient) Drug/Non Drug [...] primary osteoarthritis of the ankle and/or foot (079351233) Primary osteoarthrit is, right ankle and foot (M19.071) Active confirmed Problem Localized, primary osteoarthritis of the ankle and/or foot ([id number]) Primary osteoarthrit is, left ankle and foot (M19.072) Active confirmed Plan Of Treatment Pending Test Test Name Order Date X ray : Foot, left 3V 01/24/2017 X ray : Foot, right 3V 01/24/2017 [id number] Destruction, 1-14 12/31/2017 Insurance Providers Payer Name Payer Address Payer Phone Subscriber Number Group Number Insured Name Patient Relationship to Insured Coverage Start Date Coverage End Date [facility] [address] [place] [id number] Jennifer Good Spouse - patient is the spouse of the insured Medical (General) History Medical History History ICD Code Anxiety asthma Back,Hip,and Knee pain
== END 2025-05-13 16:50 | disposition home or self-care (01) ==
LOC: HO.HMCC 15:27
PROVIDERS: PCP Nurse Practitioner Family; Visit Provider Nurse Practitioner Family
DX: E78.5 Hyperlipidemia, unspecified (principal); E55.9 Vitamin D deficiency, unspecified; Z23 Encounter for immunization

== ENCOUNTER → 2025-05-13 15:26 | Outpatient (BNVA) | payer OTHER, SELFPAY | PROVIDERS: PCP Nurse Practitioner Family; Visit Provider Nurse Practitioner Family | DX: E78.5 Hyperlipidemia, unspecified (principal); E55.9 Vitamin D deficiency, unspecified; R60.9 Edema, unspecified; Z23 Encounter for immunization | CPT/HCPCS: 90471; 90677; 96127 ==

== ENCOUNTER 2025-07-15 14:26 | Outpatient (AMB) | payer OTHER, SELFPAY ==
[2025-07-15 14:28] VITALS: BP 122/66; PULSE 71; BMI 29.7
--- NOTE | 2025-07-15 14:28 | A.OFFVIS_ITS ---
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 Allergies Bees Allergy (Unknown, Uncoded 12/23/24 10:14) Feels faint/unstable Erythromycin Allergy (Unknown, Uncoded 12/23/24 10:14) Eye swelling Medication List - Last Reconciled 07/15/25 by Yfn Israel MD albuterol sulfate 90 mcg/actuation (Ventolin HFA) 1 puff inhalation QID PRN budesonide-formoterol 80-4.5 mcg/actuation (Symbicort) 1 puff inhalation BID bupropion HCl XL 300 mg PO DAILY cetirizine (Zyrtec) 10 mg PO DAILY PRN diclofenac sodium 1% (Arthritis Pain (diclofenac)) 4 grams topical QID 30 days estradiol 1 patch transdermal QWEEK fluticasone propionate 50 mcg/actuation 2 sprays intranasal DAILY 90 days ibuprofen (Motrin IB) 400 mg PO Q8H Lactobacillus acidophilus (Probiotic Acidophilus) 100 mmu cells PO DAILY lovastatin 40 mg PO DAILY 90 days progesterone micronized mg PO simethicone (Gas Relief (simethicone)) 250 mg (2 x 125 mg) PO BID PRN 30 days trazodone 100 mg PO BEDTIME HPI Comments Details: The patient is a 64 year old female presenting for follow-up and evaluation of abnormal exercise stress test results. She has undergone two treadmill stress tests, both of which showed abnormal EKG changes. However, the nuclear perfusion imaging component of the test was normal, indicating good blood flow. The patient reports a history of shortness of breath, which she associates with excessive laughing or coughing, but not always under those conditions. She was seen by a customer relations consultant who diagnosed lung inflammation and prescribed an inhaler. She denies experiencing chest pain with exertion, but does report sporadic, sharp pain on the left side under the breast, occurring about once a month and sometimes associated with movements like bending and reaching. History of COVID-19 infection a year ago. She has a history of hypercholesterolemia. She has a significant family history of heart disease; her mother had two heart attacks, and her grandmother suddenly. [facility]END[facility] S[facility] TO [facility] Medical History Pneumonitis Pulmonary nodule Chronic cough Dyslipidemia Headache syndrome Anxiety Hip pain Hand pain Surgical History S/P lateral meniscus repair of right knee History of removal of cyst Family History Father Arthritis Diabetes mellitus Cataract Mother HTN (hypertension) Glaucoma History of angina Maternal Grandfather Myocardial infarction Maternal Grandmother Stroke Paternal Grandmother No problems noted. Paternal Grandfather Myocardial infarction Brother No problems noted. Sister No problems noted. Son No problems noted. Daughter No problems noted. Social History Housing: House Alcohol intake: current Alcohol intake frequency: a few times a month Patient Tobacco Use Status: Never used Tobacco e-Cigarette/Vaping Use: Never Used Second Hand Smoke Exposure: No service: No Current occupational status: employed Current occupation: teacher Cognitive needs: No Hearing needs: No Vision needs: No Review of Systems Const Denies weakness ENT Denies dizziness Card Denies chest pain, Denies chest pain with activity, Denies syncope, Denies rapid heart rate, Denies pedal edema, Denies edema, Denies leg edema, Denies lightheadedness, Denies palpitations, Reports dyspnea, Reports dyspnea on exertion and Denies orthopnea Resp Denies cough, Reports dyspnea and Reports dyspnea on exertion GI Denies hematochezia and Denies change in stool character Musc Denies abnormal gait, Denies muscle cramps, Denies muscle weakness, Denies numbness, Denies radiating pain into limb and Denies tingling Neuro Denies abnormal gait, Denies dizziness, Denies syncope, Denies numbness, Denies tingling and Denies weakness Endo Denies palpitations Physical Exam Vital Signs: Last Vital Signs Pulse 71 07/15/25 14:28 BP 122/66 07/15/25 14:28 BMI result Body Mass Index 29.7 Const General: comfortable and no acute distress Orientation/consciousness: patient oriented x3 HEENT Other: Unremarkable Head: Yes normal to inspection Neck Neck: Yes normal visual inspection Chest Chest palpation & inspection: normal inspection of the chest Resp Auscultation: clear to auscultation bilaterally Cardio Palpation: normal PMI Heart sounds: S1 normal heart sound present, S2 normal heart sound present, no gallops, no murmurs and no rubs GI Palpation (GI): Soft to palpation Back/Spine/Pelvis Other: unremarkable Skin General skin exam: no rashes or lesions noted Neuro General: patient oriented x3 Extrem General: Yes normal to inspection Psych Mental Status: mental status grossly normal Office Procedures EKG Details: EKG with underlying sinus rhythm at 71/Min; no ischemic changes; [place] [id number], Complete Assessment & Plan Assessment & Plan (1) Positive cardiac stress test: Code(s): R94.39 - Abnormal result of other cardiovascular function study Category: Medical (2) Precordial chest pain: Code(s): R07.2 - Precordial pain Category: Medical Plan Pertinent studies reviewed. Echocardiogram with LVEF of 65-70%. Trivial aortic regurgitation. Otherwise unremarkable. In the initial ETT, she reached 8.9 METS exercise capacity. Mild shortness of breath but no chest pain. Borderline ST changes. In the repeat study, reached 10.1 METS. No chest pain. ST-depression inferiorly and in anterolateral leads weaning criteria for ischemia. Perfusion component was normal. Overall, atypical symptoms, strong family history, abnormal ETT portions of stress test but normal nuclear component. We discussed the findings in great detail. After going over the different options, we decided on getting a coronary CTA for further evaluation. Patient actually would prefer this very much considering her strong family history. If any clear abnormalities noted, then we will plan accordingly. Discussion Notes I explained to the patient that her exercise stress tests showed EKG changes, specifically ST-segment depressions, which were present on both tests. I clarified that for women, such EKG changes can frequently be a false positive and not indicative of a true blockage. I reviewed her nuclear perfusion images with her, which were normal, indicating good blood flow throughout her heart muscle, which makes a significant blockage less likely. We discussed that her symptoms, such as shortness of breath with laughing and sporadic, positional chest pain, are not typical for cardiac angina. Based on all this information, I conveyed that her chance of having a significant coronary artery blockage is low. Given her strong family history of heart disease, including a mother with two heart attacks, and her desire for more definitive reassurance, we discussed further testing. I recommended a cardiac CT angiogram (CTA) as the next step, which would directly visualize her coronary arteries. I explained that the procedure is brief and involves contrast dye. The patient understood the rationale and consented to proceed with the CTA to gain peace of mind. Patient was informed and verbally consented to the use of an ambient scribe for clinic note documentation during this visit. Orders: Orders CT Cardiac Coronary Angio Today Yfn Israel MD I25.10 - Atherosclerotic heart disease of [place] coronary artery without angina pectoris, R07.2 - Precordial pain Basic Metabolic Panel Today Yfn Israel MD R07.2 - Precordial pain Medications: Changed From trazodone 150 mg (3 x 50 mg) PO BEDTIME 90 days 270 tabs 1RF To trazodone 100 mg PO BEDTIME Rodrigo Mayer, [facility] Patient Instructions: - We are ordering a cardiac CT angiogram (CTA), which is a special scan to look directly at the arteries of your heart. - This test will provide more definitive information about whether you have any blockages. - While your previous stress test EKGs were abnormal, your other test results, like the heart scan showing good blood flow, are reassuring. - Your overall risk of a serious heart problem appears to be very low. - Please seek immediate medical care for any new or concerning symptoms, such as chest pain or pressure that spreads to your neck, jaw, or arms, especially if it happens with physical activity. Coding Level of Care Code New Pt Level 4 (14016) Add On Problem Visit Only Diagnoses Positive cardiac stress test R94.39 Precordial chest pain R07.2 CPT Codes EKG - CPT: 53414-[id number], Complete ([id number])
--- OUTSIDE RECORDS SUMMARY | 2025-07-15 15:33 | XMS_ITS | Patient Health Record ---
Author Organization [facility] Address [address] [place] [address] Care Team Providers Care Network Firewall Engineer Name Role Phone Rodrigo Moralez Primary Care Provider Unav ailable Ernie Sahni Unavailable [phone] Allergies Allergen (clinical drug ingredient) Drug/Non Drug [...] primary osteoarthritis of the ankle and/or foot (681504126) Primary osteoarthrit is, right ankle and foot (M19.071) Active confirmed Problem Localized, primary osteoarthritis of the ankle and/or foot (197860878) Primary osteoarthrit is, left ankle and foot (M19.072) Active confirmed Plan Of Treatment Pending Test Test Name Order Date X ray : Foot, left 3V 01/24/2017 X ray : Foot, right 3V 01/24/2017 [id number] Destruction, 1-14 12/31/2017 Insurance Providers Payer Name Payer Address Payer Phone Subscriber Number Group Number Insured Name Patient Relationship to Insured Coverage Start Date Coverage End Date [facility] [address] [facility] [place] [address] [id number] Jennifer Good Spouse - patient is the spouse of the insured Medical (General) History Medical History History ICD Code Anxiety asthma Back,Hip,and Knee pain
== END 2025-07-15 15:09 | disposition home or self-care (01) ==
LOC: HO.HCS 14:26
PROVIDERS: PCP Nurse Practitioner Family; Visit Provider Internal Medicine
DX: R94.39 Abnormal result of other cardiovascular function study (principal); R07.2 Precordial pain
CPT/HCPCS: 93010; 99204; G2211

== ENCOUNTER → 2025-07-15 14:26 | Outpatient (BNVA) | payer OTHER, SELFPAY | PROVIDERS: PCP Nurse Practitioner Family; Visit Provider Internal Medicine | DX: R94.39 Abnormal result of other cardiovascular function study (principal); R07.2 Precordial pain; I35.1 Nonrheumatic aortic (valve) insufficiency | CPT/HCPCS: 93005 ==